=== PATIENT | female | born 1965 | race Hispanic/Latino ===

== ENCOUNTER 2017-07-17 22:56 | Inpatient (IN) | payer MEDICARE, MEDICAID ==
--- NOTE | 2017-07-17 23:17 | ED PDOC ---
Arrival/HPI - General Time Seen by Provider: 07/17/17 22:58 Historian: Patient - History of Present Illness Narrative History of Present Illness (Text): 07/17/17 23:13 Anay Velazco is a 52 year old female, whose past medical history includes dementia, cerebral palsy, and hypertension, who presents to the emergency department complaining of large amounts of coffee ground vomitus as per Jail papers. Patient has no other complaints at this time. Unable to obtain further history due to patient's underlying mute and dementia from Cerebral Palsy. Time/Duration: 4-6 hours Symptom Course: Intermittent Severity Level: Mild Activities at Onset: Light Context: Home Past Medical History - Provider Review Nursing Documentation Reviewed: Yes - Infectious Disease Hx of Infectious Diseases: None - Tetanus Immunization Tetanus Immunization: Unknown - Past Medical History Past Medical History: No Previous - Cardiac Hx Cardiac Disorders: No - Pulmonary Hx Respiratory Disorders: No - Neurological Hx Neurological Disorder: No - HEENT Hx HEENT Disorder: No - Renal Hx Renal Disorder: No - Endocrine/Metabolic Hx Diabetes Mellitus Type 1: Yes - Hematological/Oncological Hx Blood Transfusions: No Hx Blood Transfusion Reaction: No - Integumentary Hx Dermatological Disorder: No - Musculoskeletal/Rheumatological Hx Musculoskeletal Disorders: No - Gastrointestinal Hx Gastrointestinal Disorders: Yes Other/Comment: irritable bowel synd - Genitourinary/Gynecological Hx Incontinence: Yes - Psychiatric Hx Psychophysiologic Disorder: No Hx Substance Use: No - Past Surgical History Past Surgical History: Unable to Obtain - Surgical History Other/Comment: - Anesthesia Hx Anesthesia Reactions: No Hx Malignant Hyperthermia: No - Suicidal Assessment Feels Threatened In Home Enviroment: No Family/Social History - Physician Review Nursing Documentation Reviewed: Yes Family/Social History: No Known Family HX Smoking Status: Never Smoked Hx Alcohol Use: No Hx Substance Use: No Hx Substance Use Treatment: No Allergies/Home Meds Allergies/Adverse Reactions: Allergies No Known Allergies Allergy (Verified 06/12/13 22:38) Home Medications: Home Meds Medication Instructions Recorded Confirmed Enoxaparin Sodium [Lovenox] 40 mg SC DAILY 06/13/13 07/28/14 Polyethylene Glycol 3350 [Miralax] 17 gm PO DAILY 06/13/13 07/28/14 Sorbitol Solution [Sorbitol 1 ml] 15 ml PO DAILY 06/13/13 07/28/14 Acetaminophen [Tylenol] 650 mg PO PRN PRN 07/23/13 07/28/14 Albuterol/Ipratropium [Duoneb 3 3 ml IH Q6 PRN 07/23/13 07/28/14 MG/3 Ml-0.5 MG/3 Ml 3 Ml] Bisacodyl [Dulcolax] 10 mg RC PRN PRN 07/23/13 07/28/14 Metoprolol Tartrate 25 mg PO DAILY 07/23/13 07/28/14 Mvi Daily 1 tab PO DAILY 07/23/13 07/28/14 Nutritional Supplement [Ensure] 1 bar PO DAILY 07/23/13 07/28/14 Pantoprazole Sodium [Protonix] 40 mg PO DAILY 07/23/13 07/28/14 Vitamin A/D [Vitamin A&D] 1 appl TP PRN PRN 07/23/13 07/28/14 Review of Systems - Physician Review All systems were reviewed & negative as marked: Yes - Review of Systems Constitutional: absent: Fevers, Night Sweats Eyes: absent: Vision Changes ENT: absent: Hearing Changes Respiratory: absent: SOB, Cough Cardiovascular: absent: Chest Pain Gastrointestinal: Hematemesis Genitourinary Female: absent: Dysuria Musculoskeletal: absent: Arthralgias Skin: absent: Rash Neurological: absent: Headache, Dizziness Endocrine: absent: Diaphoresis Physical Exam Vital Signs Temp Pulse Resp Pulse Ox 07/17/17 23:00 100.2 F H 125 H 16 93 L Temperature: Febrile Pulse: Tachycardic Appearance: Positive for: Well-Appearing, Non-Toxic, Comfortable - Systems Exam Head: Present: Atraumatic, Normocephalic Pupils: Present: PERRL Extroacular Muscles: Present: EOMI Conjunctiva: Present: Normal Mouth: Present: Moist Mucous Membranes Neck: Present: Normal Range of Motion Respiratory/Chest: Present: Clear to Auscultation, Good Air Exchange. No: Respiratory Distress, Accessory Muscle Use Cardiovascular: Present: Regular Rate and Rhythm, Normal S1, S2. No: Murmurs Abdomen: Present: Normal Bowel Sounds. No: Tenderness, Distention, Peritoneal Signs Back: Present: Normal Inspection Upper Extremity: Present: Other (Contracted extremities due to cerebral palsy) Lower Extremity: Present: Other (Contracted extremities due to cerebral palsy) Neurological: Present: Other (Non-verbal and non-communicative which is baseline ) Skin: Present: Warm, Dry, Normal Color. No: Rashes Psychiatric: Present: Alert, Oriented x 3, Normal Insight, Normal Concentration Medical Decision Making ED Course and Treatment: 07/17/17 23:16 Impression: 52 year old female complaining of large amounts of coffee ground vomitus as per group home papers. Differential Diagnosis included but are not limited to: Plan: -- EKG -- Chest X-ray -- Type and Screen -- Labs -- Protonix, Zofran, and IV Fluids -- Reassess and disposition Progress Notes: 07/18/17 05:55 Code sepsis was called .Pt. remains alert,with normal vital signs/ hemodynamically stable. 07/18/17 06:00 Case was discussed with PMD .Accepted to her service.Requested / on consult. - Lab Interpretations Lab Results: 07/18/17 04:00 07/18/17 04:00 Lab Results 07/18/17 05:05: pO2 119 H, VBG pH 7.48 H, VBG pCO2 30.0 L, VBG HCO3 22.3, VBG Total CO2 23.2, VBG O2 Sat (Calc) 99.2 H, VBG Base Excess -0.3 L, VBG Potassium 5.0, Glucose 115 H, Lactate 2.2 H, FiO2 21.0, Sodium 141.0, Chloride 111.0 H, Venous Blood Potassium 5.0 07/18/17 04:00: Blood Type O POSITIVE, Antibody Screen Negative, BBK History Checked No verified bt 07/18/17 04:00: WBC 18.5 H D, RBC 4.90, Hgb 11.9 L, Hct 37.6, MCV 76.7 L, MCH 24.3 L, MCHC 31.6, RDW 16.3 H, Plt Count 361, MPV 10.5 07/18/17 04:00: Sodium 142, Potassium 4.0, Chloride 109 H, Carbon Dioxide 22, Anion Gap 15, BUN 10, Creatinine 0.6 L, Est GFR ( Amer) > 60, Est GFR ( Non-Af Amer) > 60, Random Glucose 115 H, Calcium 8.9, Total Bilirubin 1.0, AST 27, ALT 25, Alkaline Phosphatase 108, Total Protein 7.3, Albumin 3.8, Globulin 3.5, Albumin/Globulin Ratio 1.1, Lipase 19 L 07/18/17 04:00: PT 11.3, INR 1.05, APTT 29.0 I have reviewed the lab results: Yes - RAD Interpretation Radiology Orders: 07/17/17 23:17 CHEST PORTABLE [RAD] Stat - Medication Orders Current Medication Orders: Sodium Chloride (Sodium Chloride 0.9%) 1,000 mls @ 100 mls/hr IV .Q10H [facility] Last Admin: 07/17/17 23:30 Dose: 100 mls/hr eMAR Start Stop Document 07/17/17 23:30 JOL (Rec: 07/18/17 01:59 JOL [id number]) Intravenous Solution Start Date 07/17/17 Start Time 23:30 Discontinued Medications Cefepime HCl (Maxipime 2gm) 2 gm in 100 mls @ 100 mls/hr IVPB STAT STA PRN Reason: Protocol Stop: 07/18/17 05:58 Last Admin: 07/18/17 05:53 Dose: 100 mls/hr eMAR Start Stop Document 07/18/17 05:53 JOL (Rec: 07/18/17 05:53 JOL [id number]) Intravenous Solution Start Date 07/18/17 Start Time 05:53 End Date 07/18/17 End time 06:53 Total Infusion Time 60 Sodium Chloride 2,180 ml/ IV (SUPPLIES) 2,180 mls @ 4,354.5 mls/hr IV ONCE ONE PRN Reason: 60 ML/KG/HR Stop: 07/18/17 05:56 Ondansetron HCl (Zofran Inj) 4 mg IVP ONCE ONE Stop: 07/17/17 23:19 Last Admin: 07/17/17 23:30 Dose: 4 mg IVP Administration Document 07/17/17 23:30 JOL (Rec: 07/18/17 01:59 JOL [id number]) Charges for Administration # of IVP Administrations 1 Pantoprazole Sodium (Protonix Inj) 40 mg IVP ONCE STA Stop: 07/17/17 23:19 Last Admin: 07/17/17 23:30 Dose: 40 mg IVP Administration Document 07/17/17 23:30 JOL (Rec: 07/18/17 01:59 TRISH DUBOIS) Charges for Administration # of IVP Administrations 1 - Scribe Statement The provider has reviewed the documentation as recorded by the Kelsi Zee Provider Scribe Attestation: All medical record entries made by the Scribe were at my direction and personally dictated by me. I have reviewed the chart and agree that the record accurately reflects my personal performance of the history, physical exam, medical decision making, and the department course for this patient. I have also personally directed, reviewed, and agree with the discharge instructions and disposition. Disposition/Present on Arrival - Present on Arrival Any Indicators Present on Arrival: No History of DVT/PE: No History of Uncontrolled Diabetes: No Urinary Catheter: No History of Decub. Ulcer: No History Surgical Site Infection Following: None - Disposition Have Diagnosis and Disposition been Completed?: Yes Diagnosis: SIRS (systemic inflammatory response syndrome), Sepsis, GI bleed Disposition: HOSPITALIZED Disposition Time: 06:11 Patient Plan: Admission Patient Problems: Current Active Problems Problem Status Onset GI bleed Acute SIRS (systemic inflammatory response syndrome) Acute Sepsis Acute Condition: STABLE Discharge Instructions (ExitCare): Sepsis (ED)
[2017-07-17] MEDS: Sodium Chloride 0.9% 1,000 ML IV SCH (23:30)
[2017-07-18 04:33] LABS: HEMATOCRIT 37.6 % (36.0-48.0); MEAN CELL VOLUME 76.7 fl (80.0-105.0); MEAN CORPUSCULAR HEMOGLOBIN 24.3 pg (25.0-35.0); MEAN CORPUSCULAR HGB CONC 31.6 g/dl (31.0-37.0); MEAN PLATELET VOLUME 10.5 fl (7.0-11.0); RED CELL DISTRIBUTION WIDTH 16.3 % (11.5-14.5); WHITE BLOOD COUNT 18.5 10^3/ul (4.5-11.0)
[2017-07-18 04:34] LABS: ALB/GLOB RATIO 1.1 (1.1-1.8); ALKALINE PHOSPHATASE 108 U/L (38-126); ALT/SGPT 25 U/L (7-56); AST/SGOT 27 U/L (14-36); BLOOD UREA NITROGEN 10 mg/dL (7-21); CALCIUM 8.9 mg/dL (8.4-10.5); CARBON DIOXIDE 22 mmol/L (21-33); CHLORIDE 109 mmol/L (98-107); GFR AFRICAN-AMERICAN > 60; GLUCOSE,RANDOM 115 mg/dL (70-110); LIPASE 19 U/L (23-300); SODIUM 142 mmol/L (132-148); TOTAL PROTEIN 7.3 g/dL (5.8-8.3)
[2017-07-18 04:42] LABS: INR 1.05 (0.93-1.08)
[2017-07-18] MEDS ORDERED: Cefepime IV 2 gm in NS 2 GM/100 ML BAG IVPB STA (04:59)
[2017-07-18 05:20] LABS: VENOUS BLOOD GAS BASE EXCESS -0.3 mmol/L (0.0-2.0); VENOUS BLOOD PH 7.48 (7.32-7.43)
--- NOTE | 2017-07-18 06:07 | PCM.SEPTIC ---
Sepsis Progress Note - Reassessment Type Date of Evaluation: 07/18/17 Time of Evaluation: 06:06 Reassessment Type: Non-invasive reassessment - Non Invasive Reassessment Were the most recent vital sign reviewed: Yes Vital Sign (Latest): Temp Pulse Resp BP Pulse Ox 100.2 F H 125 H 16 93 L 07/17/17 23:00 07/17/17 23:00 07/17/17 23:00 07/17/17 23:00
[2017-07-18 06:32] LABS: URINE BILIRUBIN NEGATIVE (NEGATIVE); URINE BLOOD MODERATE (NEGATIVE); URINE GLUCOSE (UA) NEGATIVE (NEGATIVE); URINE KETONE NEGATIVE (NEGATIVE); URINE LEUKOCYTE ESTERASE LARGE Leu/uL (NEGATIVE); URINE PROTEIN 30 mg/dL (<30 mg/dL)
[2017-07-18 06:39] LABS: URINE APPEARANCE CLOUDY (CLEAR); URINE COLOR YELLOW (YELLOW)
[2017-07-18 06:43] LABS: URINE BACTERIA MOD (NEG); URINE WBC TNTC /hpf (0-6)
--- NOTE | 2017-07-18 06:57 | CP.PCM.PN ---
Subjective - Date & Time of Evaluation Date of Evaluation: 07/18/17 Time of Evaluation: 06:57 - Subjective Subjective: Blood was drawn from right arm for venous ABG. Dx:Poor venous access. Objective - Vital Signs/Intake and Output Vital Signs (last 24 hours): Temp Pulse Resp BP Pulse Ox 100.2 F H 125 H 16 93 L 07/17/17 23:00 07/17/17 23:00 07/17/17 23:00 07/17/17 23:00 - Medications Medications: Current Medications Sodium Chloride (Sodium Chloride 0.9%) 1,000 mls @ 100 mls/hr IV .Q10H [facility] Last Admin: 07/17/17 23:30 Dose: 100 mls/hr - Labs Labs: PT 11.3 Seconds (9.9-11.8) 07/18/17 04:00 INR 1.05 (0.93-1.08) 07/18/17 04:00 APTT 29.0 Seconds (23.7-30.8) 07/18/17 04:00
[2017-07-18 08:58] LABS: VENOUS BLOOD GAS BASE EXCESS -1.4 mmol/L (0.0-2.0); VENOUS BLOOD PH 7.49 (7.32-7.43)
--- NOTE | 2017-07-18 09:00 | RAD ---
HISTORY: vomiting COMPARISON: 07/28/2014. FINDINGS: LUNGS: The lungs are clear. PLEURA: No significant pleural effusion identified, no pneumothorax apparent. CARDIOVASCULAR: Normal. OSSEOUS STRUCTURES: There is an S-shaped scoliosis in the thoracolumbar spine. VISUALIZED UPPER ABDOMEN: Normal. OTHER FINDINGS: None. IMPRESSION: No active pulmonary disease.
[2017-07-18] MEDS ORDERED: Albuterol-Ipratrop 3 mg / 0.5 (3 ml) UD IH PRN (10:11)
[2017-07-18] MEDS: Sodium Chloride 0.9% 1,000 ML IV SCH (10:20)
--- NOTE | 2017-07-18 10:33 | CT ---
PROCEDURE: CT Abdomen and Pelvis without intravenous contrast HISTORY: obstruction COMPARISON: None. TECHNIQUE: Without contrast.. Contrast Dose: Radiation dose: Total exam DLP = 869 mGy-cm. This CT exam was performed using one or more of the following dose reduction techniques: Automated exposure control, adjustment of the mA and/or kV according to patient size, and/or use of iterative reconstruction technique. FINDINGS: LOWER THORAX: Unremarkable. LIVER: Unremarkable. No gross lesion or ductal dilatation. GALLBLADDER AND BILE DUCTS: Unremarkable. PANCREAS: Unremarkable. No gross lesion or ductal dilatation. SPLEEN: Unremarkable. ADRENALS: Unremarkable. No mass. KIDNEYS AND URETERS: There is a large staghorn calculus in the right renal pelvis measuring 20 x 26 mm. Smaller more peripheral stones are seen in the right kidney. The left kidney is unremarkable. VASCULATURE: Unremarkable. No aortic aneurysm. BOWEL: Unremarkable. No obstruction. No gross mural thickening. APPENDIX: Unremarkable. Normal appendix. PERITONEUM: Unremarkable. No free fluid. No free air. LYMPH NODES: Unremarkable. No enlarged lymph nodes. BLADDER: Unremarkable. REPRODUCTIVE: Unremarkable. BONES: There is severe scoliosis convex to the left with a Sunshine angle of 50 degrees. Chronic hip dislocations are seen OTHER FINDINGS: None. IMPRESSION: Large staghorn calculi in the right kidney. No acute intra-abdominal findings. No evidence of obstruction
--- NOTE | 2017-07-18 11:27 | CP.PCM.CON ---
<Anay John - Last Filed: 07/18/17 11:25> History of Present Illness - History of Present Illness History of Present Illness: Seen and examined at bedside in ER this am, chart reviewed. ' Request for GI consult is for hematemesis. HPI: This is a 52 year old female w/ PMH of Cerebral Palsy, hypertension, and dementia came from [place] with complaints of large amounts of coffee ground vomitus. Currently her brother is at the bedside and his who are her POA, the patient is nonverbal and unable to give history. History is obtained from Family, chart,, and medical staff. The patient is in bleeding in the pas The patient is report pure thickened liquids. The patient has never had endoscopy or colonoscopy. Past medical history: Cerebral palsy, hypertension Surgical history: Denies Family history: Noncontributory Allergies: NKDA Medications: MAR reviewed Social history: No history of smoking, EtOH , or substance abuse. From [facility], POA: Her brother Lucas Velazco: Number to be reached [phone] ROS: Systems reviewed with positive findings, see hpi Past Patient History - Infectious Disease Hx of Infectious Diseases: None - Tetanus Immunizations Tetanus Immunization: Unknown - Past Social History Smoking Status: Never Smoked - CARDIAC Hx Cardiac Disorders: No - PULMONARY Hx Respiratory Disorders: No - NEUROLOGICAL Hx Neurological Disorder: No - HEENT Hx HEENT Problems: No - RENAL Hx Chronic Kidney Disease: No - ENDOCRINE/METABOLIC Hx Diabetes Mellitus Type 1: Yes - HEMATOLOGICAL/ONCOLOGICAL Hx Blood Transfusions: No Hx Blood Transfusion Reaction: No - INTEGUMENTARY Hx Dermatological Problems: No - MUSCULOSKELETAL/RHEUMATOLOGICAL Hx Musculoskeletal Disorders: No - GASTROINTESTINAL Hx Gastrointestinal Disorders: Yes Other/Comment: irritable bowel synd - GENITOURINARY/GYNECOLOGICAL Hx Incontinence: Yes - PSYCHIATRIC Hx Psychophysiologic Disorder: No Hx Substance Use: No - SURGICAL HISTORY Other/Comment: - ANESTHESIA Hx Anesthesia Reactions: No Hx Malignant Hyperthermia: No Meds Allergies/Adverse Reactions: Allergies Allergy/AdvReac Type Severity Reaction Status Date / Time No Known Allergies Allergy Verified 06/12/13 22:38 - Medications Medications: Current Medications Sodium Chloride (Sodium Chloride 0.9%) 1,000 mls @ 100 mls/hr IV .Q10H [facility] Last Admin: 07/17/17 23:30 Dose: 100 mls/hr Cefepime HCl (Maxipime 2gm) 2 gm in 100 mls @ 100 mls/hr IVPB Q8 [facility]A PRN Reason: Protocol Stop: 07/23/17 14:01 Physical Exam - Constitutional Appears: No Acute Distress - Head Exam Head Exam: NORMAL INSPECTION - Eye Exam Eye Exam: Normal appearance. absent: Scleral icterus - ENT Exam ENT Exam: Mucous Membranes Moist Additional comments: oral cavity with dried dark saliva - Neck Exam Neck exam: Positive for: Normal Inspection - Respiratory Exam Respiratory Exam: Decreased Breath Sounds, NORMAL BREATHING PATTERN. absent: Rales, Wheezes, Respiratory Distress - Cardiovascular Exam Cardiovascular Exam: +S1, +S2 - GI/Abdominal Exam GI & Abdominal Exam: Normal Bowel Sounds, Soft. absent: Distended, Guarding, Rebound, Tenderness - Extremities Exam Extremities exam: Positive for: pedal pulses present. Negative for: calf tenderness, pedal edema Additional comments: legs dry, mild edema - Neurological Exam Additional comments: awake and alert, nonverbal - Skin Skin Exam: Dry, Warm Results - Vital Signs Recent Vital Signs: Last Vital Signs Temp 99.1 F 07/18/17 08:00 Pulse 100 H 07/18/17 08:00 Resp 18 07/18/17 08:00 BP 118/89 07/18/17 08:00 Pulse Ox 98 07/18/17 08:00 - Labs Result Diagrams: 07/18/17 04:00 07/18/17 04:00 Labs: Laboratory Results - last 24 hr 07/18/17 07/18/17 06:15 08:40 pO2 133 H VBG pH 7.49 H VBG pCO2 27.0 L VBG HCO3 20.6 L VBG Total CO2 21.4 L VBG O2 Sat (Calc) 98.9 H VBG Base Excess -1.4 L VBG Potassium 4.2 Sodium 143.0 Chloride 116.0 H Glucose 103 Lactate 1.2 FiO2 21.0 Venous Blood Potassium 4.2 Urine Color Yellow Urine Appearance Cloudy Urine pH 8.0 Ur Specific [place] 1.015 Urine Protein 30 H Urine Glucose (UA) Negative Urine Ketones Negative Urine Blood Moderate H Urine Nitrate Positive H Urine Bilirubin Negative Urine Urobilinogen 1.0 H Ur Leukocyte Esterase Large H Urine RBC 2 - 5 Urine WBC Tntc Ur Epithelial Cells 1 - 3 Urine Bacteria Mod Assessment & Plan - Assessment and Plan (Free Text) Assessment: Assessment: Hematemesis Leukocytosis UTI Cerebral palsy Hypertension Plan: Request for CT scan A&P w/no IV or oral contrast r/o obstruction or pathology continue Protonix 40 IV daily NPO , continue IVF monitor H/H and for overty GI bleeding urine and blood cultures sent ID evaluation may benefit from EGD, will FU ct scan report spoke brother Myles and at bedside who is POA ([phone]) regarding plan. Thank you for this consult and for allowing us to participate in your patient care. Seen and discussed w/ Dr. Rodriguez. <Kiya Rodriguez V - Last Filed: 07/18/17 18:28> Meds - Medications Medications: Current Medications Albuterol/Ipratropium (Duoneb 3 Mg/0.5 Mg (3 Ml) Ud) 3 ml IH Q6 PRN PRN Reason: Cough and congestion Sodium Chloride (Sodium Chloride 0.9%) 1,000 mls @ 100 mls/hr IV .Q10H [facility] Last Admin: 07/18/17 10:20 Dose: 100 mls/hr Cefepime HCl (Maxipime 2gm) 2 gm in 100 mls @ 100 mls/hr IVPB Q8 [facility]AYA PRN Reason: Protocol Stop: 07/23/17 14:01 Last Admin: 07/18/17 15:11 Dose: 100 mls/hr Metoprolol Tartrate (Lopressor) 25 mg PO BID [facility] Last Admin: 07/18/17 17:42 Dose: Not Given Pantoprazole Sodium (Protonix Inj) 40 mg IVP DAILY [facility] Results - Vital Signs Recent Vital Signs: Last Vital Signs Temp 97.3 F L 07/18/17 14:00 Pulse 104 H 07/18/17 14:00 Resp 20 07/18/17 14:00 BP 134/74 07/18/17 17:42 Pulse Ox 97 07/18/17 14:00 - Labs Result Diagrams: 07/18/17 04:00 07/18/17 04:00 Labs: Laboratory Results - last 24 hr 07/18/17 07/18/17 06:15 08:40 pO2 133 H VBG pH 7.49 H VBG pCO2 27.0 L VBG HCO3 20.6 L VBG Total CO2 21.4 L VBG O2 Sat (Calc) 98.9 H VBG Base Excess -1.4 L VBG Potassium 4.2 Sodium 143.0 Chloride 116.0 H Glucose 103 Lactate 1.2 FiO2 21.0 Venous Blood Potassium 4.2 Urine Color Yellow Urine Appearance Cloudy Urine pH 8.0 Ur Specific [place] 1.015 Urine Protein 30 H Urine Glucose (UA) Negative Urine Ketones Negative Urine Blood Moderate H Urine Nitrate Positive H Urine Bilirubin Negative Urine Urobilinogen 1.0 H Ur Leukocyte Esterase Large H Urine RBC 2 - 5 Urine WBC Tntc Ur Epithelial Cells 1 - 3 Urine Bacteria Mod Attending/Attestation - Attestation I have personally seen and examined this patient.: Yes I have fully participated in the care of the patient.: Yes I have reviewed all pertinent clinical information: Yes Notes (Text): This is an addendum to GI progress report dictated by Anay John APN.The patient was seen and examined earlier. Medical records, lab studies, imagings were reviewed. Last 24 hours events reviewed. Agreed with the above treatment plan as outlined in Anay John APN's notes the with the addition of the following this 50-year-old [facility] resident was transferred to 4 episodes of coffee- ground vomitus patient was found to have positive urease suggests a urinary tract infection. on examination abdomen soft no tenderness. A CT scan revealed renal calculus large. Patient is presently on IV antibiotics we will continue that. we start the patient the liquid diet and close follow-up of the hemoglobin and hematocrit continue PPI would defer EGD for now 07/18/17 18:27
[2017-07-18 13:49] VITALS: BMI 29.2
[2017-07-18] MEDS ORDERED: Pneumococcal 23-Valent Vaccine IM ONE (13:50)
--- NOTE | 2017-07-18 15:00 | CARD ---
APPROVED REPORT EKG Measurement Heart [id number] MA [id number] [id number] <Conclusion> Sinus tachycardia RSR' or QR pattern in V1 suggests right ventricular conduction delay Q in Lead 3 and Small Q in AVF.
[2017-07-18] MEDS: Cefepime IV 2 gm in NS 2 GM/100 ML BAG IVPB SCH ×2 (15:11→21:54)
--- NOTE | 2017-07-18 15:53 | CP.PCM.CON ---
History of Present Illness - History of Present Illness History of Present Illness: 52 year old female with PMH of dementia, cerebral palsy, HTN, DM, irritable bowel syndrome was brought in to [facility] after she had an episode of coffee ground emesis at the correction. There was no note of diarrhea, no convulsions, no loss of consciousness, no fall. In the ED, she was noted to have elevated lactate blood levels and leukocytosis. Infectious Diseases consult is requested to further evaluate and manage. Further review of systems is unobtainable because of the patient's cerebral palsy. Review of Systems - Review of Systems All systems: reviewed and no additional remarkable complaints except (as per HPI ) Past Patient History - Infectious Disease Hx of Infectious Diseases: None - Tetanus Immunizations Tetanus Immunization: Unknown - Past Social History Smoking Status: Never Smoked - CARDIAC Hx Cardiac Disorders: No - PULMONARY Hx Respiratory Disorders: No - NEUROLOGICAL Hx Neurological Disorder: No - HEENT Hx HEENT Problems: No - RENAL Hx Chronic Kidney Disease: No - ENDOCRINE/METABOLIC Hx Diabetes Mellitus Type 1: Yes - HEMATOLOGICAL/ONCOLOGICAL Hx Blood Transfusions: No Hx Blood Transfusion Reaction: No - INTEGUMENTARY Hx Dermatological Problems: No - MUSCULOSKELETAL/RHEUMATOLOGICAL Hx Musculoskeletal Disorders: No - GASTROINTESTINAL Hx Gastrointestinal Disorders: Yes Other/Comment: irritable bowel synd - GENITOURINARY/GYNECOLOGICAL Hx Incontinence: Yes - PSYCHIATRIC Hx Psychophysiologic Disorder: No Hx Substance Use: No - SURGICAL HISTORY Other/Comment: - ANESTHESIA Hx Anesthesia Reactions: No Hx Malignant Hyperthermia: No Meds Allergies/Adverse Reactions: Allergies Allergy/AdvReac Type Severity Reaction Status Date / Time No Known Allergies Allergy Verified 06/12/13 22:38 - Medications Medications: Current Medications Sodium Chloride (Sodium Chloride 0.9%) 1,000 mls @ 100 mls/hr IV .Q10H [facility] Last Admin: 07/17/17 23:30 Dose: 100 mls/hr Physical Exam - Constitutional Appears: Non-toxic, No Acute Distress - Head Exam Head Exam: NORMAL INSPECTION - Neck Exam Neck exam: Negative for: Meningismus - Respiratory Exam Respiratory Exam: Decreased Breath Sounds - Cardiovascular Exam Cardiovascular Exam: +S1, +S2 - GI/Abdominal Exam GI & Abdominal Exam: Soft. absent: Tenderness Results - Vital Signs Recent Vital Signs: Last Vital Signs Temp 100.2 F H 07/17/17 23:00 Pulse 125 H 07/17/17 23:00 Resp 16 07/17/17 23:00 BP Pulse Ox 93 L 07/17/17 23:00 - Labs Result Diagrams: 07/18/17 04:00 07/18/17 04:00 Labs: Laboratory Results - last 24 hr 07/18/17 06:15 Urine Color Yellow Urine Appearance Cloudy Urine pH 8.0 Ur Specific [place] 1.015 Urine Protein 30 H Urine Glucose (UA) Negative Urine Ketones Negative Urine Blood Moderate H Urine Nitrate Positive H Urine Bilirubin Negative Urine Urobilinogen 1.0 H Ur Leukocyte Esterase Large H Urine RBC 2 - 5 Urine WBC Tntc Ur Epithelial Cells 1 - 3 Urine Bacteria Mod Assessment & Plan - Assessment and Plan (Free Text) Plan: Assessment Systemic Inflammatory Response Syndrome, probably related to Upper GI bleeding, etiology to be determined, R/O sepsis due to UTI with finding of right kidney staghorn calculus dementia cerebral palsy HTN DM irritable bowel syndrome Plan Started patient on Cefepime pending blood, urine cx; reviewed CT A/P follow up endoscopy plans of GI would suggest Urology evaluation for the right kidney staghorn calculus will monitor clinically
[2017-07-18] MEDS ORDERED: Non Formulary Medication (Metoprolol Tartrate [Metoprolol Tartrate] 25 MG) PO SCH (18:00)
[2017-07-19] MEDS: Cefepime IV 2 gm in NS 2 GM/100 ML BAG IVPB SCH ×3 (05:53→21:24)
[2017-07-19 07:09] LABS: ALB/GLOB RATIO 1.1 (1.1-1.8); ALKALINE PHOSPHATASE 105 U/L (38-126); ALT/SGPT 29 U/L (7-56); AST/SGOT 30 U/L (14-36); BILIRUBIN,TOTAL 1.1 mg/dL (0.2-1.3); BLOOD UREA NITROGEN 5 mg/dL (7-21); CALCIUM 8.5 mg/dL (8.4-10.5); CARBON DIOXIDE 17 mmol/L (21-33); CHLORIDE 117 mmol/L (98-107); CHOLESTEROL 164 mg/dL (130-200); GFR AFRICAN-AMERICAN > 60; GLUCOSE,RANDOM 91 mg/dL (70-110); POTASSIUM 4.2 mmol/L (3.6-5.0); SODIUM 149 mmol/L (132-148); TOTAL PROTEIN 6.9 g/dL (5.8-8.3)
[2017-07-19 07:48] LABS: IRON 41 ug/dL (45-180)
[2017-07-19 08:41] LABS: BASO # 0.06 K/mm3 (0.0-2.0); BASO % 0.5 % (0.0-3.0); EOS # 0.2 (0.0-0.7); EOS % 2.2 % (1.5-5.0); GRAN # 8.25 (1.4-6.5); GRAN % 74.4 % (50.0-68.0); HEMATOCRIT 36.4 % (36.0-48.0); LYMPH # 1.9 (1.2-3.4); MEAN CELL VOLUME 77.8 fl (80.0-105.0); MEAN CORPUSCULAR HEMOGLOBIN 23.9 pg (25.0-35.0); MEAN CORPUSCULAR HGB CONC 30.8 g/dl (31.0-37.0); MEAN PLATELET VOLUME 9.9 fl (7.0-11.0); MONO # 0.7 (0.1-0.6); MONO % 5.9 % (1.0-6.0); RED CELL DISTRIBUTION WIDTH 16.2 % (11.5-14.5); WHITE BLOOD COUNT 11.1 10^3/ul (4.5-11.0)
--- NOTE | 2017-07-19 09:57 | HP ---
DATE: CHIEF COMPLAINT: Vomiting with blood. HISTORY OF PRESENT ILLNESS: Ms. Anay Velazco is a 52-year-old female, resident of [facility] with past medical history of dementia, cerebral palsy, hypertension, is brought to the emergency room department complaining of large amount of coffee-ground vomitus as per skilled nursing staff. Actually, they called me mid of the night and then I told them to transfer patient to [facility] Emergency room. Patient is nonverbal, cannot give any history, then I saw the patient's brother and [id number] were sitting on the bedside. They have many questions. We answered that. PAST MEDICAL HISTORY: Dementia, cerebral palsy, hypertension, osteoporosis, diabetes mellitus type 1, urinary incontinence, section. FAMILY HISTORY: Father and mother noncontributory. HABITS: Never smoked. No drugs. No ethanol. ALLERGIES: PATIENT IS NOT ALLERGIC WITH ANY MEDICATIONS. HOME MEDICATIONS: Lovenox, MiraLax, sorbitol, Tylenol, Dulcolax, metoprolol, multivitamins, ensure, Protonix, vitamin A and D. REVIEW OF SYSTEMS: Patient is examined on the bedside, looking comfortable. No more vomiting. No vision changes, no hearing changes. No shortness of breath. No coughing. History of hematemesis. Patient is nonverbal, cannot give review of systems by looking at this new rash. PHYSICAL EXAMINATION VITAL SIGNS: Temperature 99.4, T-max 100.2, pulse 101, blood pressure 135/73, respiratory rate 19. HEENT: Head is normocephalic and atraumatic. Eyes: PERRLA. Extraocular muscles are intact. Conjunctivae are clear. Nose is patent. Mucous membranes are moist. NECK: Supple. No carotid bruits, JVD, or thyromegaly. CHEST: Bilaterally symmetrical. HEART: S1 and S2 positive. LUNGS: Clear to auscultation. ABDOMEN: Soft. Bowel sounds positive. No organomegaly. EXTREMITIES: No edema. No cyanosis. NEUROLOGICAL: The patient is awake, alert. Moving all 4 extremities. No focal deficit. LABORATORY DATA: White blood cells 13.5, hemoglobin 11.9, hematocrit 37.6, platelets 361. Sodium 142, potassium 4.0, BUN 10, creatinine 0.6, glucose 115. ASSESSMENT AND PLAN: Ms. Anay Velazco is a 52-year-old lady with leucocytosis, anemia, hyperchloremia, hyperglycemia, proteuria, hematuria, urinary tract infection. Seen by Dr. Nic Dawkins, Infectious Disease. History of cerebral palsy, hypertension, came with coffee-ground vomiting. Seen by Dr. Rodriguez. Discussion done with him. Hematemesis. Gastrointestinal requested CAT scan to rule out obstruction or pathology. Started on Protonix IV and started on NPO, but later on after discussion with Dr. Rodriguez liquid food started. According to Dr. Rodriguez, may the patient will get benefit from esophagogastroduodenoscopy. Spoke to brother , and his at the bedside. They are power of real estate associate attorney. CT revealed renal calculus, large. Dr. Rodriguez started liquid diet and close followup of the hemoglobin and hematocrit. Continue PPI. Seen by Dr. Nic Dawkins, Infectious Disease, rule out systemic inflammatory response syndrome probably related to upper gastrointestinal bleeding. May be findings are due to right kidney staghorn calculus. Starting the patient on cefepime depending on the blood culture, urine culture. We will call consult with Dr. Casarez, Urologist, ask from the family if they want Dr. Casarez consult. CAT scan reviewed by me. Large staghorn calculi in the right kidney. No acute intraabdominal findings. No evidence of obstruction. Seen by Dr. Belkis Alston. Sepsis code was called. Discussion done with the brother and [id number]. Continue present treatment. Repeat labs. We will followup. Bety Nelson MD [id number]
--- NOTE | 2017-07-19 12:47 | CP.PCM.PN ---
<Anay John - Last Filed: 07/19/17 12:46> Subjective - Date & Time of Evaluation Date of Evaluation: 07/19/17 Time of Evaluation: 09:00 - Subjective Subjective: Seen and examined at the bedside this morning, no further reported hematemesis, the patient is awake and alert but nonverbal, no acute overnight events reported. Tolerated the clear liquids. No reports of BM. Objective - Vital Signs/Intake and Output Vital Signs (last 24 hours): Temp Pulse Resp BP Pulse Ox 98.6 F 95 H 20 140/80 98 07/19/17 08:10 07/19/17 08:10 07/19/17 08:10 07/19/17 08:10 07/19/17 08:10 Intake and Output: 07/19/17 07/19/17 06:59 18:59 Intake Total 241 Output Total 2500 Balance -2259 - Medications Medications: Current Medications Albuterol/Ipratropium (Duoneb 3 Mg/0.5 Mg (3 Ml) Ud) 3 ml IH Q6 PRN PRN Reason: Cough and congestion Sodium Chloride (Sodium Chloride 0.9%) 1,000 mls @ 100 mls/hr IV .Q10H [facility] Last Admin: 07/18/17 10:20 Dose: 100 mls/hr Cefepime HCl (Maxipime 2gm) 2 gm in 100 mls @ 100 mls/hr IVPB Q8 [facility] PRN Reason: Protocol Stop: 07/23/17 14:01 Last Admin: 07/19/17 05:53 Dose: 100 mls/hr Metoprolol Tartrate (Lopressor) 25 mg PO BID [facility] Last Admin: 07/19/17 09:24 Dose: Not Given Pantoprazole Sodium (Protonix Inj) 40 mg IVP DAILY [facility] Last Admin: 07/19/17 09:19 Dose: 40 mg - Labs Labs: 07/19/17 08:30 07/19/17 06:30 PT 11.3 Seconds (9.9-11.8) 07/18/17 04:00 INR 1.05 (0.93-1.08) 07/18/17 04:00 APTT 29.0 Seconds (23.7-30.8) 07/18/17 04:00 - Constitutional Appears: No Acute Distress - Eye Exam Eye Exam: Normal appearance. absent: Scleral icterus - ENT Exam ENT Exam: Mucous Membranes Moist - Neck Exam Neck Exam: Normal Inspection - Respiratory Exam Respiratory Exam: Decreased Breath Sounds, NORMAL BREATHING PATTERN. absent: Rales, Wheezes, Respiratory Distress - Cardiovascular Exam Cardiovascular Exam: +S1, +S2 - GI/Abdominal Exam GI & Abdominal Exam: Soft, Normal Bowel Sounds. absent: Guarding, Tenderness, Rebound - Extremities Exam Extremities Exam: Normal Capillary Refill. absent: Calf Tenderness, Pedal Edema - Neurological Exam Neurological Exam: Alert, Awake - Skin Skin Exam: Dry, Warm Assessment and Plan - Assessment and Plan (Free Text) Assessment: Assessment: s/p Hematemesis, H/H stable, no further N/V Urosepsis Staghorn Renal Calculi Cerebral palsy Hypertension Plan: continue Protonix 40 IV daily thick clear liquids, advance as tolerated on IVF monitor H/H and for overty GI bleeding as per ID urology eval Seen and discussed w/ Dr. Rodriguez <Kiya Rodriguez V - Last Filed: 07/19/17 23:46> Objective - Vital Signs/Intake and Output Vital Signs (last 24 hours): Temp Pulse Resp BP Pulse Ox 97 F L 75 18 119/53 L 98 07/19/17 16:00 07/19/17 18:00 07/19/17 16:00 07/19/17 16:00 07/19/17 16:00 Intake and Output: 07/19/17 07/20/17 18:59 06:59 Intake Total 0 240 Output Total 650 500 Balance -650 -260 - Medications Medications: Current Medications Albuterol/Ipratropium (Duoneb 3 Mg/0.5 Mg (3 Ml) Ud) 3 ml IH Q6 PRN PRN Reason: Cough and congestion Sodium Chloride (Sodium Chloride 0.9%) 1,000 mls @ 100 mls/hr IV .Q10H [facility] Last Admin: 07/19/17 21:19 Dose: 100 mls/hr Cefepime HCl (Maxipime 2gm) 2 gm in 100 mls @ 100 mls/hr IVPB Q8 [facility] PRN Reason: Protocol Stop: 07/23/17 14:01 Last Admin: 07/19/17 21:24 Dose: 100 mls/hr Vancomycin HCl (Vancomycin 1gm) 1 gm in 250 mls @ 167 mls/hr IVPB Q12H [facility] PRN Reason: Protocol Last Admin: 07/19/17 22:52 Dose: 167 mls/hr Iron Sucrose 100 mg/ Sodium (Chloride) 105 mls @ 210 mls/hr IVPB ONCE ONE Stop: 07/20/17 10:29 Metoprolol Tartrate (Lopressor) 25 mg PO BID [facility] Last Admin: 07/19/17 17:41 Dose: Not Given Pantoprazole Sodium (Protonix Inj) 40 mg IVP DAILY [facility] Last Admin: 07/19/17 09:19 Dose: 40 mg - Labs Labs: 07/19/17 08:30 07/19/17 06:30 PT 11.3 Seconds (9.9-11.8) 07/18/17 04:00 INR 1.05 (0.93-1.08) 07/18/17 04:00 APTT 29.0 Seconds (23.7-30.8) 07/18/17 04:00 Attending/Attestation - Attestation I have personally seen and examined this patient.: Yes I have fully participated in the care of the patient.: Yes I have reviewed all pertinent clinical information, including history, physical exam and plan: Yes Notes (Text): This is an addendum to GI progress report dictated by Anay John APN.The patient was seen and examined earlier. Medical records, lab studies, imagings were reviewed. Last 24 hours events reviewed. Agreed with the above treatment plan as outlined in Anay John APN's notes the with the addition of the following patient is tolerating diet Abdomen soft no tenderness Now blood culture positive awaiting for identification continue antibiotics as per ID Hemoglobin stable continue PPI 07/19/17 23:45
--- NOTE | 2017-07-19 13:07 | CON ---
DATE: 07/19/2017 GENITOURINARY CONSULTATION CHIEF COMPLAINT: Right renal staghorn calculus. HISTORY OF PRESENT ILLNESS: The patient is a 52-year-old woman. The history is obtained from the chart since she is a resident of [facility]. She has a history of dementia, cerebral palsy. She was admitted after having what appeared to be upper GI bleed. She is diabetic. She is not able to give a history and the history is obtained from the chart as mentioned. FAMILY HISTORY: It is not contributory. SOCIAL HISTORY: She does not smoke or drink. ALLERGIES: SHE HAS NO ALLERGIES. MEDICINES: She takes at home include Lovenox, sorbitol, Toprol and Protonix. REVIEW OF SYMPTOMS: She appears to be comfortable. No obvious respiratory distress, cardiac distress. She is breathing easily. She seems calm. PHYSICAL EXAMINATION: VITAL SIGNS: Shows her to be afebrile, pulse 95, blood pressure 140/80, respirations 20. HEENT: Sclerae clear. The conjunctivae are pink. ABDOMEN: No apparent CVA pain. No hepatosplenomegaly, rebound or guarding. BACK: She has significant curvature of her spine. She is lying supine. SKIN: No peripheral edema. DIAGNOSTIC STUDIES: A CAT scan was done which reported a right renal staghorn. I looked at the films. There was good parenchyma, this has been there in my opinion for years. The left kidney is normal, there does not appear to be any significant hydro. Her urine culture was no growth, as were her blood cultures. Her lab work showed a white count initially of 18,000, now 11,000. She is on cefepime. Her creatinine is 0.5. She has an indwelling catheter with an excellent output of 2500 mL. IMPRESSION: A right staghorn calculus that I would not treat. The patient has a negative urine culture; if it turns positive, I might speak to get the input from infectious disease as to whether any type of suppressive therapy either with Hiprex, vitamin C or low dose of any antibiotic, but if this is the first episode and there is no evidence of urosepsis, I absolutely would not treat this, the treatment would be extensive and I think given her overall medical condition it is not warranted. Kurt Casarez MD [facility] # [id number]
--- NOTE | 2017-07-19 13:37 | CON ---
DATE: HISTORY OF PRESENT ILLNESS: The patient is a 52-year-old female with a history of cerebral palsy and developmental disability, who is a resident of [facility], transferred to the emergency department of [facility] for coffee-ground emesis. The patient has been seen in consultation by Dr. Michael XIONG. The patient was also noted to have an elevated white blood cell count and low-grade fever and was seen in consultation by infectious disease. The patient is in no acute distress at present. There is no shortness of breath, no cough. Chest x-ray showed no active disease. Blood and urine cultures were negative. PAST MEDICAL HISTORY: The patient's past medical history includes cerebral palsy with developmental disability, hypertension, type 2 diabetes mellitus. The patient is essentially bed and wheelchair bound. REVIEW OF SYSTEMS: Unobtainable. MEDICATIONS: The patient's current medications include Lopressor 25 mg twice daily, DuoNeb 3 mL inhale q. 6 hours, cefepime 2 g IV q. 8 hours, Protonix 40 mg daily, and IV saline. ALLERGIES: THE PATIENT HAS NO KNOWN DRUG ALLERGIES. SOCIAL HISTORY: The patient has no history of tobacco, alcohol, or drug use. FAMILY HISTORY: Noncontributory. PHYSICAL EXAMINATION GENERAL: The patient is a well-nourished female, in no acute distress. VITAL SIGNS: Blood pressure 140/80, temperature 98.6, pulse 95, and respiratory rate 20. HEENT: Head is normocephalic and atraumatic. Pupils are equal, round, and reactive to light. Extraocular movements are intact. NECK: Supple with no thyromegaly, no carotid bruit, and no adenopathy. LUNGS: Clear. HEART: Regular rate and rhythm. ABDOMEN: Soft, nontender. Bowel sounds are normoactive. EXTREMITIES: Show contractures and muscle atrophy of all 4 extremities. NEUROLOGICAL: The patient is awake without focal, sensory, or motor deficits. She is essentially nonverbal and has global cognitive impairment. SKIN: Warm and dry. LABORATORY DATA: WBC is 11.1, hemoglobin 11.2, and hematocrit 36.4. Sodium 149, potassium 4.2, chloride 117, CO2 is 17, BUN 5, and creatinine 0.5. Urinalysis is positive for nitrites, moderate blood, large leukocyte esterase, and wbc is too numerous to count. IMPRESSION: 1. Possible urinary tract infection. Cultures may be negative if antibiotics were administered before culture was obtained. 2. Rule out upper gastrointestinal bleed. 3. Cerebral palsy with developmental disability. 4. Hypertension. 5. Type 2 diabetes mellitus. PLAN: Continue IV antibiotics, IV proton pump inhibitors, GI and infectious disease followup. We will position the patient every 2 hours to prevent pressure ulcers. Thank you for this consultation. We will follow. GURPREET Hopkins MD
--- NOTE | 2017-07-19 16:13 | PN ---
DATE: 07/19/2017 SUBJECTIVE: The patient is in bed, in no acute distress, was seen earlier today in 367, bed #2. PHYSICAL EXAMINATION: VITAL SIGNS: On exam, temperature is 98, blood pressure is 140/80, respiratory rate of 18. HEENT: Unremarkable. NECK: Supple. LUNGS: Have decreased breath sounds. HEART: Normal S1, S2. ABDOMEN: Soft, nontender. LABORATORY: Examination reveals a white count of 11,000, hemoglobin of 11 and platelets of 328. BUN of 5, creatinine of 0.5 and urinalysis is noted. Microbiology reveals the blood cultures are negative, urine cultures are negative. ASSESSMENT AND PLAN: A 52-year-old with dementia, cerebral palsy, hypertension, diabetes, irritable bowel syndrome with episode of coffee-ground emesis in the correction and with systemic inflammatory response syndrome probably related to upper gastrointestinal bleed, etiology to be determined and with negative blood, negative urine cultures and another urine culture is negative, currently on cefepime day #2 in a patient with cerebral palsy, dementia, hypertension, diabetes, irritable bowel syndrome. Anay John' progress note is reviewed and Dr. Casarez' consultation is reviewed. We will follow with you Georgi Goldstein MD
[2017-07-19] MEDS: Sodium Chloride 0.9% 1,000 ML IV SCH ×3 (17:42→21:19)
[2017-07-19] MEDS: Vancomycin 1gm in NS 250ml 1 GM/250 ML BAG IVPB SCH (22:52)
--- NOTE | 2017-07-19 23:47 | PN ---
DATE: SUBJECTIVE: The patient is a 52-year-old female. The patient was seen and examined on the bedside. Brother and [id number] were sitting on the bedside. The patient looks comfortable, smiling, had her food, but that was liquid, now we put her on a soft diet. No respiratory distress. No cardiac distress. No shortness of breath. No nausea, vomiting or diarrhea. No hematuria or hematochezia. No swelling of the leg. No chest pain. No palpitation. The patient is a poor historian. PHYSICAL EXAMINATION: VITAL SIGNS: The patient is afebrile. Pulse 95, blood pressure 140/80, respiratory rate 20. HEENT: Head normocephalic and atraumatic. Eyes; PERRLA. Extraocular muscles intact. Conjunctivae clear. Nose patent. Mucous membrane moist. NECK: Supple. No carotid bruits. No JVD or thyromegaly. CHEST: Bilaterally symmetrical. HEART: S1 and S2 positive. LUNGS: Clear to auscultation. ABDOMEN: Soft. Bowel sounds present. No organomegaly. EXTREMITIES: No edema. No cyanosis. NEUROLOGICAL: The patient is awake and alert. Moving all 4 extremities. No focal deficits. MEDICATIONS: DuoNeb, Lopressor, Maxipime, Protonix, IV saline, and vancomycin. LABORATORY DATA: White blood cells 11.1, hemoglobin 11.2, hematocrit 36.4, platelets 325. Sodium 149, potassium 4.2, BUN 5, creatinine 0.5, iron 41, saturation 14. ASSESSMENT AND PLAN: Ms. Anay Velazco is a 52-year-old female with leukocytosis, anemia, hypernatremia, hyperchloremia, iron deficiency getting iron infusion, proteinuria, hematuria, urinary tract infection, seen by Dr. Goldstein, Infectious Disease. The patient has advanced dementia, cerebral palsy, irritable bowel syndrome, came [place] [facility] em[facility] [place] [facility] and has systemic inflammatory response syndrome, rule out upper gastrointestinal bleeding. Negative blood culture. Negative urine culture. Another urine culture is negative. Continue cefepime day #2. Infectious Disease Dr. Casarez and Anay John' notes noted. Discussion done with Dr. Casarez and with Anay John. No further reported hematemesis, tolerated liquid food and advanced to heart healthy soft diet. Hemoglobin and hematocrit is stable. Staghorn renal calculi. Continue Protonix. Monitoring hemoglobin and hematocrit. CAT scan of the abdomen and pelvis done and reviewed by me. To call the office of the patient's overall medical condition. It is not suggestive to leave the right staghorn calculus and would not treat. Discussion was done with Dr. Casarez also. Discussion done with patient's family. Getting IV fluid. We will follow. Bety Nelson MD
[2017-07-20] MEDS: Cefepime IV 2 gm in NS 2 GM/100 ML BAG IVPB SCH ×3 (05:12→21:37)
[2017-07-20 07:17] LABS: ALKALINE PHOSPHATASE 101 U/L (38-126); ALT/SGPT 40 U/L (7-56); AST/SGOT 28 U/L (14-36); BILIRUBIN,TOTAL 0.8 mg/dL (0.2-1.3); BLOOD UREA NITROGEN 6 mg/dL (7-21); CALCIUM 8.6 mg/dL (8.4-10.5); CARBON DIOXIDE 20 mmol/L (21-33); CHLORIDE 114 mmol/L (98-107); GFR AFRICAN-AMERICAN > 60; GLUCOSE,RANDOM 105 mg/dL (70-110); POTASSIUM 3.4 mmol/L (3.6-5.0); SODIUM 145 mmol/L (132-148); TOTAL PROTEIN 7.1 g/dL (5.8-8.3)
[2017-07-20 09:02] LABS: HEMATOCRIT 34.1 % (36.0-48.0); MEAN CELL VOLUME 76.5 fl (80.0-105.0); MEAN CORPUSCULAR HGB CONC 31.4 g/dl (31.0-37.0); MEAN PLATELET VOLUME 10.2 fl (7.0-11.0); RED CELL DISTRIBUTION WIDTH 16.3 % (11.5-14.5); WHITE BLOOD COUNT 12.7 10^3/ul (4.5-11.0)
[2017-07-20] MEDS ORDERED: Potassium Chloride 20 mEq/15 ml LIQ UD PO STA (09:41)
--- NOTE | 2017-07-20 09:46 | CP.PCM.PN ---
Subjective - Date & Time of Evaluation Date of Evaluation: 07/20/17 Time of Evaluation: 09:25 - Subjective Subjective: resting comfortably, NAD Objective - Vital Signs/Intake and Output Vital Signs (last 24 hours): Temp Pulse Resp BP Pulse Ox 99.2 F 83 20 106/86 97 07/20/17 05:00 07/20/17 06:00 07/20/17 05:00 07/20/17 05:00 07/20/17 05:00 Intake and Output: 07/20/17 07/20/17 06:59 18:59 Intake Total 1235 Output Total 1400 Balance -165 - Medications Medications: Current Medications Acetaminophen (Tylenol 650 Mg Supp) 650 mg RC Q4H PRN PRN Reason: fever Acetaminophen (Tylenol 650 Mg Supp) 650 mg RC Q4H PRN PRN Reason: Pain, Mild (1-3) Last Admin: 07/20/17 01:35 Dose: 650 mg Albuterol/Ipratropium (Duoneb 3 Mg/0.5 Mg (3 Ml) Ud) 3 ml IH Q6 PRN PRN Reason: Cough and congestion Sodium Chloride (Sodium Chloride 0.9%) 1,000 mls @ 100 mls/hr IV .Q10H [facility] Last Admin: 07/19/17 21:19 Dose: 100 mls/hr Cefepime HCl (Maxipime 2gm) 2 gm in 100 mls @ 100 mls/hr IVPB Q8 [facility] PRN Reason: Protocol Stop: 07/23/17 14:01 Last Admin: 07/20/17 05:12 Dose: 100 mls/hr Vancomycin HCl (Vancomycin 1gm) 1 gm in 250 mls @ 167 mls/hr IVPB Q12H [facility] PRN Reason: Protocol Last Admin: 07/19/17 22:52 Dose: 167 mls/hr Iron Sucrose 100 mg/ Sodium (Chloride) 105 mls @ 210 mls/hr IVPB ONCE ONE Stop: 07/20/17 10:29 Last Admin: 07/20/17 09:00 Dose: 210 mls/hr Metoprolol Tartrate (Lopressor) 25 mg PO BID [facility] Last Admin: 07/20/17 09:03 Dose: Not Given Pantoprazole Sodium (Protonix Inj) 40 mg IVP DAILY [facility] Last Admin: 07/20/17 09:10 Dose: 40 mg Potassium Chloride (Potassium Chloride Oral Soln) 20 meq PO STAT [facility] Stop: 07/20/17 09:42 - Labs Labs: 07/20/17 08:56 07/20/17 06:51 PT 11.3 Seconds (9.9-11.8) 07/18/17 04:00 INR 1.05 (0.93-1.08) 07/18/17 04:00 APTT 29.0 Seconds (23.7-30.8) 07/18/17 04:00 - Respiratory Exam Respiratory Exam: Clear to Ausculation Bilateral, NORMAL BREATHING PATTERN - Cardiovascular Exam Cardiovascular Exam: REGULAR RHYTHM - GI/Abdominal Exam GI & Abdominal Exam: Soft, Normal Bowel Sounds - Neurological Exam Neurological Exam: Altered, Awake - Skin Skin Exam: Dry, Warm Assessment and Plan - Assessment and Plan (Free Text) Assessment: 1. UTI on maxepime, 2. r/o UGI Bleed, 3. Cerebral palsy with developmental disability, 4. HTN Plan: continue IV Abx, ID follow-up, GI eval, potassium ordered K+ 3.4 today
[2017-07-20] MEDS: Vancomycin 1gm in NS 250ml 1 GM/250 ML BAG IVPB SCH ×2 (10:25→21:40)
--- NOTE | 2017-07-20 12:42 | CP.PCM.PN ---
<Anay John - Last Filed: 07/20/17 12:41> Subjective - Date & Time of Evaluation Date of Evaluation: 07/20/17 Time of Evaluation: 09:50 - Subjective Subjective: Seen and examined at the bedside earlier this morning, the chart was reviewed. Patient is tolerating pured thick liquids, no reports of acute overnight events. Patient is awake and alert but nonverbal. No reports of overt GI bleed. No reports of recent BM. Objective - Vital Signs/Intake and Output Vital Signs (last 24 hours): Temp Pulse Resp BP Pulse Ox 99.2 F 104 H 20 106/86 97 07/20/17 05:00 07/20/17 10:00 07/20/17 05:00 07/20/17 05:00 07/20/17 05:00 Intake and Output: 07/20/17 07/20/17 06:59 18:59 Intake Total 1235 Output Total 1400 Balance -165 - Medications Medications: Current Medications Acetaminophen (Tylenol 650 Mg Supp) 650 mg RC Q4H PRN PRN Reason: fever Acetaminophen (Tylenol 650 Mg Supp) 650 mg RC Q4H PRN PRN Reason: Pain, Mild (1-3) Last Admin: 07/20/17 01:35 Dose: 650 mg Albuterol/Ipratropium (Duoneb 3 Mg/0.5 Mg (3 Ml) Ud) 3 ml IH Q6 PRN PRN Reason: Cough and congestion Sodium Chloride (Sodium Chloride 0.9%) 1,000 mls @ 100 mls/hr IV .Q10H [facility] Last Admin: 07/19/17 21:19 Dose: 100 mls/hr Cefepime HCl (Maxipime 2gm) 2 gm in 100 mls @ 100 mls/hr IVPB Q8 [facility] PRN Reason: Protocol Stop: 07/23/17 14:01 Last Admin: 07/20/17 05:12 Dose: 100 mls/hr Vancomycin HCl (Vancomycin 1gm) 1 gm in 250 mls @ 167 mls/hr IVPB Q12H [facility] PRN Reason: Protocol Last Admin: 07/20/17 10:25 Dose: 167 mls/hr Metoprolol Tartrate (Lopressor) 25 mg PO BID [facility] Last Admin: 07/20/17 09:03 Dose: Not Given Pantoprazole Sodium (Protonix Inj) 40 mg IVP DAILY [facility] Last Admin: 07/20/17 09:10 Dose: 40 mg - Labs Labs: 07/20/17 08:56 07/20/17 06:51 PT 11.3 Seconds (9.9-11.8) 07/18/17 04:00 INR 1.05 (0.93-1.08) 07/18/17 04:00 APTT 29.0 Seconds (23.7-30.8) 07/18/17 04:00 - Constitutional Appears: No Acute Distress - Eye Exam Eye Exam: Normal appearance. absent: Scleral icterus - ENT Exam ENT Exam: Mucous Membranes Moist - Neck Exam Neck Exam: Normal Inspection - Respiratory Exam Respiratory Exam: NORMAL BREATHING PATTERN. absent: Respiratory Distress - Cardiovascular Exam Cardiovascular Exam: +S1, +S2 - GI/Abdominal Exam GI & Abdominal Exam: Soft, Normal Bowel Sounds. absent: Guarding, Tenderness, Rebound - Extremities Exam Extremities Exam: absent: Calf Tenderness, Pedal Edema - Neurological Exam Neurological Exam: Alert, Awake - Skin Skin Exam: Dry, Warm Assessment and Plan - Assessment and Plan (Free Text) Assessment: Assessment: s/p Hematemesis, H/H stable, no further N/V UTI Sepsis, blood culture revealed gram-positive cocci Staghorn Renal Calculi Cerebral palsy Hypertension Plan: continue Protonix 40 IV daily continue pure/thick liquids on IVF monitor H/H and for overt GI bleeding on IV antibiotics as per ID urology eval Seen and discussed w/ Dr. Rodriguez <Kiya Rodriguez V - Last Filed: 07/20/17 21:29> Objective - Vital Signs/Intake and Output Vital Signs (last 24 hours): Temp Pulse Resp BP Pulse Ox 98.9 F 99 H 20 110/84 98 07/20/17 16:00 07/20/17 18:00 07/20/17 16:00 07/20/17 17:55 07/20/17 16:00 - Medications Medications: Current Medications Acetaminophen (Tylenol 650 Mg Supp) 650 mg RC Q4H PRN PRN Reason: fever Acetaminophen (Tylenol 650 Mg Supp) 650 mg RC Q4H PRN PRN Reason: Pain, Mild (1-3) Last Admin: 07/20/17 01:35 Dose: 650 mg Albuterol/Ipratropium (Duoneb 3 Mg/0.5 Mg (3 Ml) Ud) 3 ml IH Q6 PRN PRN Reason: Cough and congestion Sodium Chloride (Sodium Chloride 0.9%) 1,000 mls @ 100 mls/hr IV .Q10H [facility] Last Admin: 07/19/17 21:19 Dose: 100 mls/hr Cefepime HCl (Maxipime 2gm) 2 gm in 100 mls @ 100 mls/hr IVPB Q8 [facility] PRN Reason: Protocol Stop: 07/23/17 14:01 Last Admin: 07/20/17 14:44 Dose: 100 mls/hr Vancomycin HCl (Vancomycin 1gm) 1 gm in 250 mls @ 167 mls/hr IVPB Q12H [facility] PRN Reason: Protocol Last Admin: 07/20/17 10:25 Dose: 167 mls/hr Metoprolol Tartrate (Lopressor) 25 mg PO BID [facility] Last Admin: 07/20/17 17:55 Dose: 25 mg Pantoprazole Sodium (Protonix Inj) 40 mg IVP DAILY [facility] Last Admin: 07/20/17 09:10 Dose: 40 mg - Labs Labs: 07/20/17 08:56 07/20/17 06:51 PT 11.3 Seconds (9.9-11.8) 07/18/17 04:00 INR 1.05 (0.93-1.08) 07/18/17 04:00 APTT 29.0 Seconds (23.7-30.8) 07/18/17 04:00 Attending/Attestation - Attestation I have personally seen and examined this patient.: Yes I have fully participated in the care of the patient.: Yes I have reviewed all pertinent clinical information, including history, physical exam and plan: Yes Notes (Text): This is an addendum to GI progress report dictated by Anay John APN.The patient was seen and examined earlier. Medical records, lab studies, imagings were reviewed. Last 24 hours events reviewed. Agreed with the above treatment plan as outlined in Anay John APN's notes the with the addition of the following on examination abdomen soft no tenderness No further episodes of vomiting. Tolerating the diet. Follow up with a hemoglobin hematocrit. Positive blood cultures on antibiotics as per ID Positive urine analysis is positive,staghorn calculi 07/20/17 21:28
--- NOTE | 2017-07-20 17:28 | PN ---
DATE: 07/20/2017 SUBJECTIVE: The patient is in bed, in room #365, bed #1. No fevers and no chills. OBJECTIVE: VITAL SIGNS: On exam, temperature is 98, blood pressure is 106/80 and respiratory rate of 18. EXAMINATION OF HEENT: Unremarkable. NECK: Supple. LUNGS: Decreased breath sounds. HEART EXAM: Normal S1 and S2. ABDOMEN EXAMINATION: Soft and nontender. LABORATORY EXAMINATION: Reveals a white count of 12,700; hemoglobin of 10. BUN of 5, creatinine of 0.5 and microbiology reveals the blood cultures are positive for Gram-positive cocci in both blood cultures, but they are coag-negative staph and urine cultures have no growth. REVIEW OF ORDERS: Reveals the patient to be on cefepime and vancomycin and repeat blood cultures were ordered yesterday. Echocardiogram is pending. ASSESSMENT AND PLAN: A 52-year-old female with dementia, cerebral palsy, hypertension, diabetes, irritable bowel syndrome, episode of coffee-ground emesis at long term, systemic inflammatory response syndrome, Gram-positive cocci bacteremia with gastrointestinal bleed and contamination versus bacteremia versus endocarditis. We will check on the repeat cultures. We will continue the vancomycin. We will check on the echo and we will make further recommendation. Georgi Goldstein MD
[2017-07-20] MEDS: Sodium Chloride 0.9% 1,000 ML IV SCH (21:37)
--- NOTE | 2017-07-21 01:25 | PN ---
DATE: SUBJECTIVE: The patient is a 52-year-old female. The patient was seen and examined on the bedside, looking as comfortable, no change in the status. No headache, no dizziness, no fever, no chills. The patient is not able to give review of system. PHYSICAL EXAMINATION: VITAL SIGNS: Temperature 99.2, pulse 83, respiratory rate 20, blood pressure 106/86, and pulse oximetry 97%. HEENT: Head is normocephalic and atraumatic. Eyes; PERRLA. Extraocular muscles are intact. Conjunctivae are clear. Nose is patent. Mucous membranes are moist. NECK: Supple. No carotid bruits. No JVD or thyromegaly. CHEST: Bilaterally symmetrical. HEART: S1 and S2 positive. LUNGS: Clear to auscultation. ABDOMEN: Soft. Bowel sounds positive. No organomegaly. EXTREMITIES: No edema. No cyanosis. NEUROLOGIC: The patient is awake and alert. Moving all four extremities. No focal deficits. MEDICATIONS: Tylenol, DuoNeb, NS, Maxipime, vancomycin, iron, metoprolol, pantoprazole, and potassium. LABORATORY DATA: White blood cells 12.7, hemoglobin 10.7, hematocrit 34.1, and platelets 352. Sodium 145, potassium 3.4, BUN 6, creatinine 0.6, and glucose 105. ASSESSMENT AND PLAN: Ms. Anay Velazco is a 52-year-old lady with urinary tract infection, on Maxipime, rule out upper gastrointestinal bleeding, cerebral palsy with developmental disability, and hypertension. Blood culture is positive. Discussion done with nurse practitionerIdania. Continue antibiotics. ID is on the case. GI is on the case. Seen by Dr. Goldstein, Infectious Disease and Anay John. Status post hematemesis. No further nausea or vomiting. H and H is stable. Blood culture revealed Gram-positive cocci. Staghorn calculi. Continue Protonix IV. The patient is getting pureed like thick liquid. She has anemia, leukocytosis, and hypokalemia, replaced. GI and DVT prophylaxis. Repeat labs. We will follow. Bety Nelson MD
[2017-07-21] MEDS: Cefepime IV 2 gm in NS 2 GM/100 ML BAG IVPB SCH ×2 (06:27→15:11)
[2017-07-21] MEDS: Sodium Chloride 0.9% 1,000 ML IV SCH (06:30)
[2017-07-21 06:37] LABS: MEAN CELL VOLUME 77.4 fl (80.0-105.0); MEAN CORPUSCULAR HEMOGLOBIN 23.8 pg (25.0-35.0); MEAN CORPUSCULAR HGB CONC 30.8 g/dl (31.0-37.0); MEAN PLATELET VOLUME 10.3 fl (7.0-11.0); RED CELL DISTRIBUTION WIDTH 16.4 % (11.5-14.5); WHITE BLOOD COUNT 10.2 10^3/ul (4.5-11.0)
[2017-07-21 07:01] LABS: ALB/GLOB RATIO 1.2 (1.1-1.8); ALKALINE PHOSPHATASE 88 U/L (38-126); ALT/SGPT 40 U/L (7-56); AST/SGOT 26 U/L (14-36); BILIRUBIN,TOTAL 0.9 mg/dL (0.2-1.3); BLOOD UREA NITROGEN 6 mg/dL (7-21); CALCIUM 8.9 mg/dL (8.4-10.5); CARBON DIOXIDE 22 mmol/L (21-33); CHLORIDE 115 mmol/L (95-110); GFR AFRICAN-AMERICAN > 60; GLUCOSE,RANDOM 105 mg/dL (70-110); POTASSIUM 4.1 mmol/L (3.6-5.0); SODIUM 147 mmol/L (132-148); TOTAL PROTEIN 7.3 g/dL (5.8-8.3)
[2017-07-21 08:02] VITALS: RESP 20
[2017-07-21] MEDS: Vancomycin 1gm in NS 250ml 1 GM/250 ML BAG IVPB SCH (09:11)
--- NOTE | 2017-07-21 12:43 | CP.PCM.PN ---
<Anay John - Last Filed: 07/21/17 12:40> Subjective - Date & Time of Evaluation Date of Evaluation: 07/21/17 Time of Evaluation: 10:25 - Subjective Subjective: Seen and examined at the bedside earlier today, the chart was reviewed. No acute overnight event reported. Patient had a BM last night, no reports of any hematemesis or bleeding per rectum. Objective - Vital Signs/Intake and Output Vital Signs (last 24 hours): Temp Pulse Resp BP Pulse Ox 97.6 F 92 H 20 150/86 97 07/21/17 08:01 07/21/17 09:18 07/21/17 08:01 07/21/17 09:18 07/21/17 08:01 Intake and Output: 07/21/17 07/21/17 06:59 18:59 Intake Total 2840 60 Output Total 1400 1300 Balance 1440 -1240 - Medications Medications: Current Medications Acetaminophen (Tylenol 650 Mg Supp) 650 mg RC Q4H PRN PRN Reason: fever Acetaminophen (Tylenol 650 Mg Supp) 650 mg RC Q4H PRN PRN Reason: Pain, Mild (1-3) Last Admin: 07/21/17 01:35 Dose: 650 mg Albuterol/Ipratropium (Duoneb 3 Mg/0.5 Mg (3 Ml) Ud) 3 ml IH Q6 PRN PRN Reason: Cough and congestion Sodium Chloride (Sodium Chloride 0.9%) 1,000 mls @ 100 mls/hr IV .Q10H [facility] Last Admin: 07/21/17 06:30 Dose: 100 mls/hr Cefepime HCl (Maxipime 2gm) 2 gm in 100 mls @ 100 mls/hr IVPB Q8 [facility] PRN Reason: Protocol Stop: 07/23/17 14:01 Last Admin: 07/21/17 06:27 Dose: 100 mls/hr Vancomycin HCl (Vancomycin 1gm) 1 gm in 250 mls @ 167 mls/hr IVPB Q12H [facility] PRN Reason: Protocol Last Admin: 07/21/17 09:11 Dose: 167 mls/hr Metoprolol Tartrate (Lopressor) 25 mg PO BID [facility] Last Admin: 07/21/17 09:18 Dose: Not Given Pantoprazole Sodium (Protonix Inj) 40 mg IVP DAILY [facility] Last Admin: 07/21/17 09:10 Dose: 40 mg - Labs Labs: 07/21/17 06:00 07/21/17 06:00 PT 11.3 Seconds (9.9-11.8) 07/18/17 04:00 INR 1.05 (0.93-1.08) 07/18/17 04:00 APTT 29.0 Seconds (23.7-30.8) 07/18/17 04:00 - Constitutional Appears: No Acute Distress - Eye Exam Eye Exam: Normal appearance. absent: Scleral icterus - Neck Exam Neck Exam: Normal Inspection - Respiratory Exam Respiratory Exam: NORMAL BREATHING PATTERN. absent: Respiratory Distress - Cardiovascular Exam Cardiovascular Exam: +S1, +S2 - GI/Abdominal Exam GI & Abdominal Exam: Soft, Normal Bowel Sounds. absent: Guarding, Tenderness, Rebound - Extremities Exam Extremities Exam: Normal Capillary Refill. absent: Pedal Edema - Neurological Exam Neurological Exam: Alert, Awake, Oriented x3 - Skin Skin Exam: Dry, Warm Assessment and Plan - Assessment and Plan (Free Text) Assessment: Assessment: s/p Hematemesis, H/H stable, no further N/V UTI Sepsis, blood culture revealed gram-positive cocci Staghorn Renal Calculi Cerebral palsy Hypertension Plan: continue Protonix 40 IV daily continue pure/thick liquids on IVF monitor H/H and for overt GI bleeding on IV antibiotics as per ID may benefit from endoscopy at one point, will have to discuss w/ family, thus far no hematemesis and h/h steady Seen and discussed w/ Dr. Rodriguez <Kiya Rodriguez V - Last Filed: 07/21/17 23:12> Objective - Vital Signs/Intake and Output Vital Signs (last 24 hours): Temp Pulse Resp BP Pulse Ox 98.6 F 100 H 20 127/93 H 98 07/21/17 16:00 07/21/17 17:17 07/21/17 16:00 07/21/17 17:17 07/21/17 16:00 Intake and Output: 07/21/17 07/22/17 18:59 06:59 Intake Total 660 Output Total 2100 Balance -1440 - Labs Labs: 07/21/17 06:00 07/21/17 06:00 PT 11.3 Seconds (9.9-11.8) 07/18/17 04:00 INR 1.05 (0.93-1.08) 07/18/17 04:00 APTT 29.0 Seconds (23.7-30.8) 07/18/17 04:00 Attending/Attestation - Attestation I have personally seen and examined this patient.: Yes I have fully participated in the care of the patient.: Yes I have reviewed all pertinent clinical information, including history, physical exam and plan: Yes Notes (Text): This is an addendum to GI progress report dictated by Anay John APN.The patient was seen and examined earlier. Medical records, lab studies, imagings were reviewed. Last 24 hours events reviewed. Agreed with the above treatment plan as outlined in Anay John APN's notes the with the addition of the following no further episodes of vomiting Abdomen soft no tenderness Continue antibiotics as per ID if any recurrence of vomiting or GI bleeding with consider upper GI endoscopy 07/21/17 23:11
--- NOTE | 2017-07-21 13:15 | CP.PCM.PN ---
Subjective - Date & Time of Evaluation Date of Evaluation: 07/21/17 Time of Evaluation: 08:15 - Subjective Subjective: NAD, non-verbal Objective - Vital Signs/Intake and Output Vital Signs (last 24 hours): Temp Pulse Resp BP Pulse Ox 97.6 F 92 H 20 150/86 97 07/21/17 08:01 07/21/17 09:18 07/21/17 08:01 07/21/17 09:18 07/21/17 08:01 Intake and Output: 07/21/17 07/21/17 06:59 18:59 Intake Total 2840 60 Output Total 1400 1300 Balance 1440 -1240 - Medications Medications: Current Medications Acetaminophen (Tylenol 650 Mg Supp) 650 mg RC Q4H PRN PRN Reason: fever Acetaminophen (Tylenol 650 Mg Supp) 650 mg RC Q4H PRN PRN Reason: Pain, Mild (1-3) Last Admin: 07/21/17 01:35 Dose: 650 mg Albuterol/Ipratropium (Duoneb 3 Mg/0.5 Mg (3 Ml) Ud) 3 ml IH Q6 PRN PRN Reason: Cough and congestion Sodium Chloride (Sodium Chloride 0.9%) 1,000 mls @ 100 mls/hr IV .Q10H [facility] Last Admin: 07/21/17 06:30 Dose: 100 mls/hr Cefepime HCl (Maxipime 2gm) 2 gm in 100 mls @ 100 mls/hr IVPB Q8 [facility] PRN Reason: Protocol Stop: 07/23/17 14:01 Last Admin: 07/21/17 06:27 Dose: 100 mls/hr Vancomycin HCl (Vancomycin 1gm) 1 gm in 250 mls @ 167 mls/hr IVPB Q12H [facility] PRN Reason: Protocol Last Admin: 07/21/17 09:11 Dose: 167 mls/hr Metoprolol Tartrate (Lopressor) 25 mg PO BID [facility] Last Admin: 07/21/17 09:18 Dose: Not Given Pantoprazole Sodium (Protonix Inj) 40 mg IVP DAILY [facility] Last Admin: 07/21/17 09:10 Dose: 40 mg - Labs Labs: 07/21/17 06:00 07/21/17 06:00 PT 11.3 Seconds (9.9-11.8) 07/18/17 04:00 INR 1.05 (0.93-1.08) 07/18/17 04:00 APTT 29.0 Seconds (23.7-30.8) 07/18/17 04:00 - Respiratory Exam Respiratory Exam: Clear to Ausculation Bilateral, NORMAL BREATHING PATTERN - Cardiovascular Exam Cardiovascular Exam: REGULAR RHYTHM - GI/Abdominal Exam GI & Abdominal Exam: Soft, Normal Bowel Sounds - Neurological Exam Neurological Exam: Altered, Awake - Skin Skin Exam: Dry, Warm Assessment and Plan (1) UTI (urinary tract infection) Status: Acute (2) GI bleed Status: Acute (3) Cerebral palsy Status: Acute (4) Cerebral palsy not affecting current episode of care Status: Acute (5) Developmental disability Status: Acute - Assessment and Plan (Free Text) Plan: continue ID/GI follow-up, pressure ulcer prophylaxis/positioning
--- NOTE | 2017-07-21 14:47 | CARD ---
APPROVED REPORT EXAM: Two-dimensional and M-mode echocardiogram with Doppler and color Doppler. INDICATION Infection:Rule out subacute bacterial endocarditis 2D DIMENSIONS IVSd0.8 (0.7-1.1cm)LVDd3.8 (3.9-5.9cm) PWd1.0 (0.7-1.1cm)LVDs2.4 (2.5-4.0cm) FS (%) 36.0 %LVEF (%)66.3 (>50%) M-Mode DIMENSIONS Aortic Root2.40 (2.2-3.7cm)Aortic Cusp Exc.1.50 (1.5-2.0cm) Aortic Valve AoV Peak Kbvcefad017.0cm/Bang Peak GR.14mmHg Mitral Valve MV E Qdsasfhj35.6cm/sMV A Diwpxnmp492.0cm/sE/A ratio0.8 TDI E/Lateral E'0.0E/Medial E'0.0 Pulmonary Valve PV Peak Vubqxzsf555.0cm/sPV Peak Grad.7mmHg Tricuspid Valve TR Peak Kychizmx321bq/sRAP [id number] Peak Gr.17mmHg [id number] LEFT VENTRICLE The left ventricle is normal size. There is normal left ventricular wall thickness. The left ventricular function is normal.EF-65% There is normal LV segmental wall motion. Transmitral Doppler flow pattern is Grade III-reversible restrictive diastolic dysfunction. No left ventricle thrombus noted on this study. There is no ventricular septal defect visualized. There is no left ventricular aneurysm. There is no mass noted in the left ventricle. RIGHT VENTRICLE The right ventricle is normal size. There is normal right ventricular wall thickness. The right ventricular systolic function is normal. ATRIA The left atrium size is normal. The right atrium size is normal. The interatrial septum is intact with no evidence for an atrial septal defect. AORTIC VALVE The aortic valve is thickened but opens well. There is trace aortic regurgitation. There is no aortic valvular stenosis. There is no aortic valvular vegetation. MITRAL VALVE The mitral valve is thickened but opens well. Mitral regurgitation is trace. There is no mitral valve stenosis. There is no evidence of mitral valve prolapse. TRICUSPID VALVE The tricuspid valve leaflets are thickened , but open well. There is trace tricuspid regurgitation.RVSP_27 mmof Hg. There is no tricuspid valve stenosis. There is no tricuspid valve prolapse or vegetation. PULMONIC VALVE The pulmonary valve is normal in structure. GREAT VESSELS The aortic root is normal in size. The ascending aorta is normal in size. The pulmonary artery is normal. The IVC is normal in size and collapses >50% with inspiration. PERICARDIAL EFFUSION There is no pleural effusion. There is no pericardial effusion. <Conclusion> Normal chamber Size. EF-65% Trace MR/TR/AR RVSP-27 mmof hg, No Vegetation noted.
[2017-07-21 17:17] VITALS: BP 127/93; PULSE 100
--- NOTE | 2017-07-21 17:35 | PN ---
SUBJECTIVE: The patient is in bed in no acute distress, nontoxic on exam. PHYSICAL EXAMINATION: VITAL SIGNS: Temperature is 98, blood pressure is 120/70, respiratory rate of 16. HEENT: Unremarkable. NECK: Supple. LUNGS: Decreased breath sounds. HEART: Normal S1 and S2. ABDOMEN: Soft, nontender. LABORATORY EXAMINATION: Reviewed. Reveals white count is down to 10,000, hemoglobin of 11, platelets of 317. Chemistries are noted. Urinalysis is noted and microbiology reveals a coag negative staph in the blood cultures. Dr. Canas's note is reviewed. ASSESSMENT AND PLAN: A 52-year-old female with dementia, cerebral palsy, hypertension, diabetes, irritable bowel syndrome, episode of coffee-ground emesis at half-way, systemic inflammatory response syndrome, gram-positive cocci bacteremia, gastrointestinal bleed, contaminated versus bacteremia versus carditis. I am still waiting for echo results which are pending, and we will continue treating with cefepime for a possible urinary tract infection. Antibiotics were given prior to collection of the urine. Georgi Goldstein MD
[2017-07-21 18:53] VITALS: TEMP 98.6; O2SAT 98
[2017-07-21] MEDS ORDERED: Cefpodoxime (Vantin) 200 mg Tab PO SCH (22:00)
== END 2017-07-21 20:22 | DRG 377 ==
LOC: ED 22:56 → ERH 07-18 06:03 → 3RNO 07-18 12:58
PROVIDERS: ADMIT Internal Medicine; ATTEND Internal Medicine
DX: K92.0 Hematemesis (principal); A41.1 Sepsis due to other specified staphylococcus; E87.0 Hyperosmolality and hypernatremia; N39.0 Urinary tract infection, site not specified; R47.01 Aphasia; E10.65 Type 1 diabetes mellitus with hyperglycemia; E87.8 Other disorders of electrolyte and fluid balance, not elsewhere classified; D50.9 Iron deficiency anemia, unspecified; I10 Essential (primary) hypertension; F02.80 Dementia in other diseases classified elsewhere, unspecified severity, without behavioral disturbance, psychotic disturbance, mood disturbance, and anxiety; E87.6 Hypokalemia; K58.9 Irritable bowel syndrome, unspecified; G80.9 Cerebral palsy, unspecified; M81.0 Age-related osteoporosis without current pathological fracture; R32 Unspecified urinary incontinence; N20.0 Calculus of kidney; Z99.3 Dependence on wheelchair; R80.9 Proteinuria, unspecified; R31.9 Hematuria, unspecified

== ENCOUNTER 2017-11-13 04:47 | Inpatient (IN) | payer MEDICARE, MEDICAID ==
[2017-11-13] MEDS ORDERED: Vancomycin 1gm in NS 250ml 1 GM/250 ML BAG IVPB STA (05:04)
--- NOTE | 2017-11-13 05:04 | ED PDOC ---
Arrival/HPI - General Time Seen by Provider: 11/13/17 04:54 Historian: Residential - History of Present Illness Narrative History of Present Illness (Text): 11/13/17 05:03 Anay Velazco is a 52 year old female, whose past medical history includes dementia, cerebral palsy, hypertension, diabetes, osteoporosis, and urinary incontinence, who presents to the Emergency department transferred from [facility] for coffee ground emesis tonight. Patient also reports right arm pain. Limited HPI and ROS due to patient's dementia. Time/Duration: Other (tonight) Symptom Onset: Gradual Symptom Course: Unchanged Activities at Onset: Light Context: Home ([facility]) Past Medical History - Provider Review Nursing Documentation Reviewed: Yes - Infectious Disease Hx of Infectious Diseases: None - Tetanus Immunization Tetanus Immunization: Unknown - Reproductive Menopause: No - Past Medical History Past Medical History: No Previous - Cardiac Hx Cardiac Disorders: Yes Hx Hypertension: Yes - Pulmonary Hx Respiratory Disorders: Yes Hx Chronic Obstructive Pulmonary Disease (COPD): Yes - Neurological Hx Neurological Disorder: No - HEENT Hx HEENT Disorder: No - Renal Hx Renal Disorder: No - Endocrine/Metabolic Hx Diabetes Mellitus Type 1: Yes - Hematological/Oncological Hx Blood Transfusions: No Hx Blood Transfusion Reaction: No - Integumentary Hx Dermatological Disorder: No - Musculoskeletal/Rheumatological Hx Musculoskeletal Disorders: No - Gastrointestinal Hx Gastrointestinal Disorders: Yes Other/Comment: irritable bowel synd - Genitourinary/Gynecological Hx Incontinence: Yes - Psychiatric Hx Psychophysiologic Disorder: No Hx Substance Use: No - Past Surgical History Past Surgical History: Unable to Obtain - Surgical History Other/Comment: - Anesthesia Hx Anesthesia Reactions: No Hx Malignant Hyperthermia: No - Suicidal Assessment Feels Threatened In Home Enviroment: No Family/Social History - Physician Review Nursing Documentation Reviewed: Yes Family/Social History: Unknown Family HX Smoking Status: Never Smoked Hx Alcohol Use: No Hx Substance Use: No Hx Substance Use Treatment: No Allergies/Home Meds Allergies/Adverse Reactions: Allergies No Known Allergies Allergy (Verified 11/13/17 05:02) Home Medications: Home Meds Medication Instructions Recorded Confirmed Polyethylene Glycol 3350 [Miralax] 17 gm PO DAILY 06/13/13 11/13/17 Sorbitol Solution [Sorbitol] 15 ml PO DAILY 06/13/13 11/13/17 Albuterol/Ipratropium [Duoneb 3 3 ml IH Q6 PRN 10/14/13 02/04/18 mg/0.5 mg (3 ml) UD] Cetirizine HCl [Zyrtec] 10 mg PO DAILY 07/18/17 11/13/17 Enoxaparin [Lovenox] 40 mg SQ DAILY 07/18/17 11/13/17 Metoprolol Tartrate [Lopressor] 25 mg PO BID 07/18/17 11/13/17 Montelukast [Singulair] 10 mg PO HS 07/18/17 11/13/17 Multivitamin/Iron/Folic Acid [Hm 1 tab PO DAILY 07/18/17 11/13/17 Complete [id number]] Omeprazole 40 mg PO DAILY 07/18/17 11/13/17 Simethicone [Bicarsim] 0.5 tab PO DAILY 07/18/17 11/13/17 amLODIPine [Norvasc] 10 mg PO DAILY 07/18/17 11/13/17 Bisacodyl [Ducolax] 10 mg RC ONCE PRN 11/13/17 11/13/17 Ondansetron [Zofran Inj] 4 mg IM Q4 PRN 11/13/17 11/13/17 Review of Systems - Review of Systems Systems not reviewed;Unavailable: Dementia Gastrointestinal: Vomiting, Hematemesis Musculoskeletal: Other (+right arm pain) Skin: Normal Physical Exam Vital Signs Reviewed: Yes Vital Signs Temp Pulse Resp BP Pulse Ox 11/13/17 09:57 98 F 101 H 20 118/72 98 11/13/17 07:34 98.5 F 86 19 122/72 97 11/13/17 06:29 99.1 F 119 H 18 130/72 100 11/13/17 04:56 134 H 17 101/63 94 L Temperature: Afebrile Blood Pressure: Normal Pulse: Regular Respiratory Rate: Normal Appearance: Positive for: Well-Appearing, Non-Toxic, Comfortable Pain Distress: None Mental Status: Positive for: other (Alert) - Systems Exam Head: Present: Atraumatic, Normocephalic Pupils: Present: PERRL Extroacular Muscles: Present: EOMI Conjunctiva: Present: Normal Mouth: Present: Moist Mucous Membranes Neck: Present: Normal Range of Motion Respiratory/Chest: Present: Clear to Auscultation, Good Air Exchange. No: Respiratory Distress, Accessory Muscle Use Cardiovascular: Present: Regular Rate and Rhythm, Normal S1, S2. No: Murmurs Abdomen: Present: Normal Bowel Sounds. No: Tenderness, Distention, Peritoneal Signs Back: Present: Normal Inspection Upper Extremity: Present: Erythema (Right arm cellulitis). No: Cyanosis, Edema Lower Extremity: Present: Normal Inspection. No: Edema Neurological: Present: GCS=15, CN II-XII Intact Skin: Present: Warm, Dry, Normal Color. No: Rashes Psychiatric: Present: Alert Medical Decision Making ED Course and Treatment: 11/13/17 05:03 Impression: 52 year old female sent from alf for coffee ground emesis tonight. Plan: -- EKG -- Chest X-ray -- Labs, VBG, blood cultures, blood type and screen -- Urinalysis, urine cultures -- IV fluids -- Vancomycin -- Protonix -- Reassess and disposition Prior Visits: Notes and results from previous visits were reviewed. On 07/17/2017, pt was seen in the Emergency department for coffee ground vomiting. Pt was admitted to the hospital for further evaluation. Progress Notes: 11/13/17 05:29 Chest X-ray reviewed, shows no acute processes. case d/w dr menendez will admit for gi bleed and cellulitis - Lab Interpretations Microbiology Results: Microbiology Results 11/13/17 07:00 Urine,Clean Catch Urine Culture - Preliminary Gram Negative Adam Lab Results: 11/13/17 06:05 11/13/17 06:05 Lab Results 11/13/17 07:00: Urine Color Yellow, Urine Appearance Slight-cloudy, Urine pH 8.5 , Ur Specific [place] 1.015, Urine Protein 30 H, Urine Glucose (UA) Negative, Urine Ketones Negative, Urine Blood Small H, Urine Nitrate Negative, Urine Bilirubin Negative, Urine Urobilinogen 0.2, Ur Leukocyte Esterase Large H, Urine RBC 0 - 2, Urine WBC 5 - 10, Ur Epithelial Cells 1 - 3, Amorphous Sediment Small, Urine Bacteria Neg 11/13/17 06:30: Hepatitis A IgM Ab Negative, Hep Bs Antigen Negative, Hep B Core IgM Ab Negative, Hepatitis C Antibody Negative 11/13/17 06:05: Sodium 150 H, Chloride 112 H, Potassium 4.1, Carbon Dioxide 26, Anion Gap 15, BUN 34 H, Creatinine 0.7, Est GFR ( Amer) > 60, Est GFR ( Non-Af Amer) > 60, Random Glucose 160 H, Calcium 9.2, Phosphorus 2.4 L, Magnesium 2.1, Total Bilirubin 0.4, AST 32, ALT 58 H, Alkaline Phosphatase 75, Total Protein 6.6, Albumin 3.2, Globulin 3.3, Albumin/Globulin Ratio 1.0 L 11/13/17 06:05: pO2 105 H, VBG pH 7.44 H, VBG pCO2 43.0, VBG HCO3 29.2 H, VBG Total CO2 30.5 H, VBG O2 Sat (Calc) 99.5 H, VBG Base Excess 4.4 H, VBG Potassium 4.2, Sodium 146.0, Chloride 115.0 H, Glucose 171 H, Lactate 2.0, FiO2 21.0, Venous Blood Potassium 4.2 11/13/17 06:05: PT 12.3, INR 1.07, APTT 26.6 11/13/17 06:05: WBC 17.2 H D, RBC 4.71, Hgb 11.4 L, Hct 38.6, MCV 82.0 D, MCH 24.2 L, MCHC 29.5 L, RDW 16.6 H, Plt Count 428, MPV 11.0, Gran % 82.4 H, Lymph % (Auto) 12.4 L, [place] % (Auto) 4.4, Eos % (Auto) 0.4 L, Baso % (Auto) 0.4, Gran # 14.20 H, Lymph # (Auto) 2.1, [place] # (Auto) 0.8 H, Eos # (Auto) 0.1, Baso # ( Auto) 0.07 - RAD Interpretation Radiology Orders: 11/13/17 05:04 CHEST PORTABLE [RAD] Stat Transfer Driver: ED Physician - Medication Orders Current Medication Orders: Acetaminophen (Tylenol 325mg Tab) 650 mg PO Q4H PRN PRN Reason: Fever >100.5 F Albuterol/Ipratropium (Duoneb 3 Mg/0.5 Mg (3 Ml) Ud) 3 ml IH [id number] CHHAYA Last Admin: 11/14/17 13:18 Dose: 3 ml Fluticasone Propionate (Flonase) 1 actuation NS Q12 CHAHYA Last Admin: 11/14/17 09:56 Dose: 1 spr Vancomycin HCl (Vancomycin 1gm) 1 gm in 250 mls @ 167 mls/hr IVPB Q12H CHHAYA PRN Reason: Protocol Last Admin: 11/14/17 09:57 Dose: 167 mls/hr eMAR Start Stop Document 11/14/17 09:57 DEL (Rec: 11/14/17 09:58 DEL [id number]) Intravenous Solution Start Date 11/14/17 Start Time 09:57 End Date 11/14/17 End time 11:30 Total Infusion Time 93 Meropenem/Sodium Chloride (Meropenem 1g/Ns 100ml Ivpb) 1 gm in 100 mls @ 100 mls/hr IVPB Q8 CHHAYA PRN Reason: Protocol Stop: 11/27/17 14:01 Last Admin: 11/14/17 14:26 Dose: 100 mls/hr eMAR Start Stop Document 11/14/17 14:26 DEL (Rec: 11/14/17 14:26 DEL [id number]) Intravenous Solution Start Date 11/14/17 Start Time 14:26 End Date 11/14/17 End time 15:25 Total Infusion Time 59 Sodium Chloride (Sodium Chloride 0.9%) 1,000 mls @ 50 mls/hr IV .Q20H CHHAYA Last Admin: 11/14/17 14:26 Dose: 50 mls/hr eMAR Start Stop Document 11/14/17 14:26 DEL (Rec: 11/14/17 14:26 DEL [id number]) Intravenous Solution Start Date 11/14/17 Start Time 14:26 Metoprolol Tartrate (Lopressor) 25 mg PO BRKDIN [facility] Last Admin: 11/14/17 17:05 Dose: 25 mg Ondansetron HCl (Zofran Inj) 4 mg IVP Q6H PRN PRN Reason: Nausea/Vomiting Last Admin: 11/13/17 14:15 Dose: 4 mg IVP Administration Document 11/13/17 14:15 [id number] (Rec: 11/13/17 14:15 [email or web address] [id number]) Charges for Administration # of IVP Administrations 1 Pantoprazole Sodium (Protonix Inj) 40 mg IVP DAILY [facility] Last Admin: 11/14/17 09:53 Dose: 40 mg IVP Administration Document 11/14/17 09:53 DEL (Rec: 11/14/17 09:53 DEL [id number]) Charges for Administration # of IVP Administrations 1 Sodium Chloride ([place] Nasal [place]) 2 ml NS Q4 CHHAYA Last Admin: 11/14/17 17:05 Dose: 1 spr Discontinued Medications Sodium Chloride (Sodium Chloride 0.9%) 1,000 mls @ 125 mls/hr IV .Q8H CHHAYA Vancomycin HCl (Vancomycin 1gm) 1 gm in 250 mls @ 167 mls/hr IVPB STAT STA PRN Reason: Protocol Stop: 11/13/17 06:33 Last Admin: 11/13/17 07:52 Dose: 167 mls/hr eMAR Start Stop Document 11/13/17 07:52 GMI (Rec: 11/13/17 07:52 GMI [id number]) Intravenous Solution Start Date 11/13/17 Start Time 07:52 End Date 11/13/17 End time 09:47 Total Infusion Time 115 Sodium Chloride (Sodium Chloride 0.9%) 1,000 mls @ 1,000 mls/hr IV .Q1H [facility]AYA Stop: 11/13/17 06:14 Last Admin: 11/13/17 06:13 Dose: 1,000 mls/hr eMAR Start Stop Document 11/13/17 06:13 AD (Rec: 11/13/17 06:13 AD [id number]) Intravenous Solution Start Date 11/13/17 Start Time 06:13 Sodium Chloride (Sodium Chloride 0.9%) 1,000 mls @ 100 mls/hr IV .Q10H STA Stop: 11/13/17 16:46 Last Admin: 11/13/17 07:51 Dose: 100 mls/hr eMAR Start Stop Document 11/13/17 07:51 GMI (Rec: 11/13/17 07:50 GMI [id number]) Intravenous Solution Start Date 11/13/17 Start Time 07:50 Piperacillin Sod/Tazobactam Sod (Zosyn 3.375 In Ns 100ml) 100 mls @ 200 mls/hr IVPB STAT STA PRN Reason: Protocol Stop: 11/13/17 07:14 Last Admin: 11/13/17 07:15 Dose: 200 mls/hr eMAR Start Stop Document 11/13/17 07:15 AD (Rec: 11/13/17 07:34 AD [id number]) Intravenous Solution Start Date 11/13/17 Start Time 07:15 Sodium Chloride (Sodium Chloride 0.9%) 1,000 mls @ 50 mls/hr IV .Q20H STA Stop: 11/14/17 02:46 Last Admin: 11/13/17 14:15 Dose: 50 mls/hr eMAR Start Stop Document 11/13/17 14:15 [id number] (Rec: 11/13/17 14:15 [id number]) Intravenous Solution Start Date 11/13/17 Start Time 14:15 End Date 11/13/17 Metoprolol Tartrate (Lopressor) 25 mg PO STAT STA Stop: 11/13/17 13:35 Last Admin: 11/13/17 14:14 Dose: 25 mg MAR Pulse and Blood Pressure Document 11/13/17 14:14 [id number] (Rec: 11/13/17 14:14 [email or web address] [id number]) Pulse Pulse Rate (60-90) 125 Blood Pressure Blood Pressure (100/60-150/90) 120/60 Ondansetron HCl (Zofran Inj) 4 mg IVP STAT STA Stop: 11/13/17 06:52 Last Admin: 11/13/17 07:00 Dose: 4 mg IVP Administration Document 11/13/17 07:00 AD (Rec: 11/13/17 07:34 AD [id number]) Charges for Administration # of IVP Administrations 1 Pantoprazole Sodium (Protonix Inj) 40 mg IVP ONCE STA Stop: 11/13/17 05:08 Last Admin: 11/13/17 06:31 Dose: 40 mg IVP Administration Document 11/13/17 06:31 AD (Rec: 11/13/17 06:31 AD [id number]) Charges for Administration # of IVP Administrations 1 - Scribe Statement The provider has reviewed the documentation as recorded by the Scribarnol Rivas All medical record entries made by the Scribe were at my direction and personally dictated by me. I have reviewed the chart and agree that the record accurately reflects my personal performance of the history, physical exam, medical decision making, and the department course for this patient. I have also personally directed, reviewed, and agree with the discharge instructions and disposition. Disposition/Present on Arrival - Present on Arrival Any Indicators Present on Arrival: No History of DVT/PE: No History of Uncontrolled Diabetes: No Urinary Catheter: No History of Decub. Ulcer: No History Surgical Site Infection Following: None - Disposition Have Diagnosis and Disposition been Completed?: Yes Diagnosis: Cellulitis of right arm, GI bleed Disposition: HOSPITALIZED Disposition Time: 07:00 Patient Problems: Current Active Problems Problem Status Onset Anemia, iron deficiency Acute Cellulitis of right arm Acute Dehydration Acute Hematuria Acute Hyperchloremia Acute Hypernatremia Acute Hypertriglyceridemia Acute Hypophosphatemia Acute Proteinuria Acute Staghorn calculus Chronic Condition: GOOD
[2017-11-13] MEDS ORDERED: Sodium Chloride 0.9% 1,000 ML IV SCH ×2 (05:15)
[2017-11-13 06:25] LABS: BASO # 0.07 K/mm3 (0.0-2.0); BASO % 0.4 % (0.0-3.0); EOS # 0.1 (0.0-0.7); EOS % 0.4 % (1.5-5.0); GRAN # 14.2 (1.4-6.5); GRAN % 82.4 % (50.0-68.0); HEMOGLOBIN 11.4 g/dL (12.0-16.0); LYMPH # 2.1 (1.2-3.4); LYMPH % 12.4 % (22.0-35.0); MEAN CORPUSCULAR HEMOGLOBIN 24.2 pg (25.0-35.0); MEAN CORPUSCULAR HGB CONC 29.5 g/dl (31.0-37.0); MONO # 0.8 (0.1-0.6); MONO % 4.4 % (1.0-6.0); RBC 4.71 10^6/uL (3.5-6.1); RED CELL DISTRIBUTION WIDTH 16.6 % (11.5-14.5); WHITE BLOOD COUNT 17.2 10^3/ul (4.5-11.0)
[2017-11-13 06:30] LABS: VENOUS BLOOD GAS BASE EXCESS 4.4 mmol/L (0.0-2.0); VENOUS BLOOD GAS PO2 105 mm/Hg (30-55); VENOUS BLOOD PH 7.44 (7.32-7.43)
[2017-11-13] MEDS ORDERED: Piperacillin/Tazobact 3.375 gm 100 ML IVPB STA (06:45)
[2017-11-13] MEDS ORDERED: Sodium Chloride 0.9% 1,000 ML IV STA ×2 (06:47→13:18)
[2017-11-13 06:50] LABS: ALBUMIN 3.2 g/dL (3.0-4.8); ALT/SGPT 58 U/L (7-56); AST/SGOT 32 U/L (14-36); BLOOD UREA NITROGEN 34 mg/dL (7-21); CALCIUM 9.2 mg/dL (8.4-10.5); GFR AFRICAN-AMERICAN > 60; GFR NON-AFRICAN AMERICAN > 60; INR 1.07 (0.93-1.08); MAGNESIUM 2.1 mg/dL (1.7-2.2); PARTIAL THROMBOPLASTIN TIME 26.6 Seconds (25.1-36.5); PROTHROMBIN TIME 12.3 SECONDS (9.4-12.5)
[2017-11-13 07:39] LABS: PH,URINE 8.5 (4.7-8.0); URINE BILIRUBIN NEGATIVE (NEGATIVE); URINE BLOOD SMALL (NEGATIVE); URINE GLUCOSE (UA) NEGATIVE (NEGATIVE); URINE LEUKOCYTE ESTERASE LARGE Leu/uL (NEGATIVE); URINE NITRATE NEGATIVE (NEGATIVE); URINE PROTEIN 30 mg/dL (<30 mg/dL); URINE UROBILINOGEN 0.2 E.U./dL (<1 E.U./dL)
[2017-11-13 07:42] LABS: URINE APPEARANCE SLIGHT-CLOUDY (CLEAR); URINE COLOR YELLOW (YELLOW)
[2017-11-13 08:14] LABS: URINE AMORPHOUS SEDIMENT SMALL; URINE BACTERIA NEG (NEG); URINE RBC 0 - 2 /hpf (0-2)
--- NOTE | 2017-11-13 09:06 | RAD ---
HISTORY: Sepsis Patient COMPARISON: 07/17/2017 FINDINGS: LUNGS: No active pulmonary disease. PLEURA: No significant pleural effusion identified, no pneumothorax apparent. CARDIOVASCULAR: Normal. OSSEOUS STRUCTURES: No significant abnormalities. VISUALIZED UPPER ABDOMEN: Normal. OTHER FINDINGS: None. IMPRESSION: No active disease.
[2017-11-13] MEDS: Vancomycin 1gm in NS 250ml 1 GM/250 ML BAG IVPB SCH ×2 (09:46→21:24)
[2017-11-13 11:45] LABS: VENOUS BLOOD GAS BASE EXCESS -0.3 mmol/L (0.0-2.0); VENOUS BLOOD GAS PO2 199 mm/Hg (30-55); VENOUS BLOOD PH 7.46 (7.32-7.43)
--- NOTE | 2017-11-13 11:46 | CARD ---
APPROVED REPORT EKG Measurement Heart [id number] AL [id number] [id number] <Conclusion> Sinus tachycardia RSR' or QR pattern in V1 suggests right ventricular conduction delay Possible Inferior infarct, age undetermined Abnormal ECG
--- NOTE | 2017-11-13 13:37 | CT ---
PROCEDURE: CT Abdomen and Pelvis without intravenous contrast HISTORY: vomiting blood inc lfts wbc of 17k COMPARISON: 07/18/2017 CT TECHNIQUE: Without contrast. Contrast Dose: Radiation dose: Total exam DLP = 667 mGy-cm. This CT exam was performed using one or more of the following dose reduction techniques: Automated exposure control, adjustment of the mA and/or kV according to patient size, and/or use of iterative reconstruction technique. FINDINGS: LOWER THORAX: Unremarkable. LIVER: Unremarkable. No gross lesion or ductal dilatation. GALLBLADDER AND BILE DUCTS: Unremarkable. PANCREAS: Unremarkable. No gross lesion or ductal dilatation. SPLEEN: Unremarkable. ADRENALS: Unremarkable. No mass. KIDNEYS AND URETERS: There is a staghorn calculus in the right renal pelvis. This is unchanged. VASCULATURE: Unremarkable. No aortic aneurysm. BOWEL: Unremarkable. No obstruction. No gross mural thickening. APPENDIX: Unremarkable. Normal appendix. PERITONEUM: Unremarkable. No free fluid. No free air. LYMPH NODES: Unremarkable. No enlarged lymph nodes. BLADDER: Unremarkable. REPRODUCTIVE: Unremarkable. BONES: Severe scoliosis convex to the left OTHER FINDINGS: Chronic hip dysplasias IMPRESSION: No acute intra-abdominal findings
[2017-11-13] MEDS: Sodium Chloride 0.9% 1,000 ML IV SCH (14:00)
[2017-11-13] MEDS: Meropenem 1g/NS 100mL IVPB 1 GM/100 ML PIGGYBACK IVPB SCH ×2 (14:15→21:24)
[2017-11-13 17:39] VITALS: BMI 26.2
[2017-11-13] MEDS: Albuterol-Ipratrop 3 mg / 0.5 (3 ml) UD IH SCH (18:20)
--- NOTE | 2017-11-13 20:13 | CON ---
DATE: 11/13/2017 LOCATION: The patient is seen in the emergency room. CHIEF COMPLAINT: The patient had vomiting blood from a residential x1 day and a right arm erythema x1 day. HISTORY OF PRESENT ILLNESS: This is a 52-year-old female with a history of dementia, cerebral palsy, hypertension, diabetes, inflammatory bowel syndrome, who was brought in from the residential because of upper gastrointestinal hemorrhage and has erythema of the right upper arm. The patient does not verbalize. It has been reported she had low-grade fevers. No abdominal pain was reported. No diarrhea. Just vomiting blood. No chest pain, shortness of breath or cough. No headaches have been reported. PAST MEDICAL HISTORY: Significant for dementia, cerebral palsy, hypertension, diabetes, IBS. PAST SURGICAL HISTORY: Significant for a . ALLERGIES: THE PATIENT HAS NO KNOWN ALLERGIES. MEDICATIONS: Medications at the residential include Lovenox and Zyrtec, amlodipine, omeprazole and Singulair and metoprolol. PHYSICAL EXAMINATION: GENERAL: The patient is in bed, no acute distress. VITAL SIGNS: Temperature of 99.1, blood pressure is 130/70, respiratory rate of 18, heart rate of 134, 94% saturation. HEENT: Examination of HEENT is unremarkable. NECK: Supple. LUNGS: Have decreased breath sounds. HEART: Normal S1, S2. ABDOMEN: Soft, nontender. No rebound or guarding. EXTREMITIES: Examination of the right upper arm, there is erythema. No entry site. No trauma. No discharge. LABORATORY DATA: Laboratory examination reveals a white count of 17,000, hemoglobin of 11, platelets of 428, 82% granulocytosis. Coagulation is noted. Chemistries reveals a BUN of 34, creatinine of 0.7. Random glucose is 160 and ALT is 58. Urinalysis is noted. Microbiology is pending. The patient's chest x-ray is negative in the emergency room chart by Dr. Jeet Handy was reviewed. ASSESSMENT AND PLAN: This is a 52-year-old female, residential patient with dementia, cerebral palsy, hypertension, diabetes, irritable bowel syndrome, admitted with vomiting blood, low-grade fevers, tachycardia, hypoxia, leukocytosis. #1 is severe sepsis with a right upper arm cellulitis and acute blood loss, upper gastrointestinal bleed. We will start the patient on vancomycin and meropenem. Pending blood cultures, urine cultures, human immunodeficiency virus, hepatitis profile, CAT scan of the abdomen and pelvis. Gastroenterology consultation requested and we will make further recommendations upon availability of initial results. We will follow closely with you. Georgi Goldstein MD
[2017-11-13] MEDS: Fluticasone Nasal 50 mcg/Spray NS SCH (21:25)
--- NOTE | 2017-11-13 23:57 | CP.PCM.CON ---
History of Present Illness - History of Present Illness History of Present Illness: this 55-year-old senior care resident with a past medical history of cerebral palsy, hypertension, diabetes mellitus, renal stones admitted with the episodes of coffee-ground vomitus. Patient was also found to be having leukocytosis history of low-grade fever. History is mainly from this chart and also patient' s family was at bedside No further episodes of vomiting since admission. Patient's hemoglobin on admission was 11.43 months ago hemoglobin was also 11.4 crit was stable patient was found to be having leukocytosis started on IV antibiotics. OTHER POSSIBLE MEDICAL HISTORY as above. DM ,Patient was hospitalized 3 months ago for similar episodes of coffee-ground vomitus which subsided. Family was reluctant for any invasive workup endoscopy at that time. SOCIAL HISTORY no smoking or call FAMILY HISTORY noncontributory REVIEW OF SYSTEM positive as about other systems reviewed limited Review of Systems - Review of Systems All systems: reviewed and no additional remarkable complaints except Past Patient History - Infectious Disease Hx of Infectious Diseases: None - Tetanus Immunizations Tetanus Immunization: Unknown - Past Social History Smoking Status: Never Smoked - CARDIAC Hx Cardiac Disorders: Yes Hx Hypertension: Yes - PULMONARY Hx Respiratory Disorders: Yes Hx Chronic Obstructive Pulmonary Disease (COPD): Yes - NEUROLOGICAL Hx Neurological Disorder: No - HEENT Hx HEENT Problems: No - RENAL Hx Chronic Kidney Disease: No - ENDOCRINE/METABOLIC Hx Diabetes Mellitus Type 1: Yes - HEMATOLOGICAL/ONCOLOGICAL Hx Blood Disorders: No - INTEGUMENTARY Hx Dermatological Problems: No - MUSCULOSKELETAL/RHEUMATOLOGICAL Hx Falls: No - GASTROINTESTINAL Hx Gastrointestinal Disorders: Yes Other/Comment: irritable bowel synd - GENITOURINARY/GYNECOLOGICAL Hx Incontinence: Yes - PSYCHIATRIC Hx Psychophysiologic Disorder: No - SURGICAL HISTORY Other/Comment: - ANESTHESIA Hx Anesthesia Reactions: No Hx Malignant Hyperthermia: No Meds Allergies/Adverse Reactions: Allergies Allergy/AdvReac Type Severity Reaction Status Date / Time No Known Allergies Allergy Verified 11/13/17 05:02 - Medications Medications: Current Medications Acetaminophen (Tylenol 325mg Tab) 650 mg PO Q4H PRN PRN Reason: Fever >100.5 F Albuterol/Ipratropium (Duoneb 3 Mg/0.5 Mg (3 Ml) Ud) 3 ml IH [id number] CHHAYA Last Admin: 11/13/17 18:20 Dose: 3 ml Fluticasone Propionate (Flonase) 1 actuation NS Q12 [facility] Last Admin: 11/13/17 21:25 Dose: Not Given Vancomycin HCl (Vancomycin 1gm) 1 gm in 250 mls @ 167 mls/hr IVPB Q12H CHHAYA PRN Reason: Protocol Last Admin: 11/13/17 21:24 Dose: 167 mls/hr Meropenem/Sodium Chloride (Meropenem 1g/Ns 100ml Ivpb) 1 gm in 100 mls @ 100 mls/hr IVPB Q8 CHHAYA PRN Reason: Protocol Stop: 11/27/17 14:01 Last Admin: 11/13/17 21:24 Dose: 100 mls/hr Sodium Chloride (Sodium Chloride 0.9%) 1,000 mls @ 50 mls/hr IV .Q20H [facility] Last Admin: 11/13/17 14:00 Dose: 50 mls/hr Metoprolol Tartrate (Lopressor) 25 mg PO BRKDIN [facility] Last Admin: 11/13/17 18:53 Dose: 25 mg Ondansetron HCl (Zofran Inj) 4 mg IVP Q6H PRN PRN Reason: Nausea/Vomiting Last Admin: 11/13/17 14:15 Dose: 4 mg Pantoprazole Sodium (Protonix Inj) 40 mg IVP DAILY [facility] Sodium Chloride ([place] Nasal [place]) 2 ml NS Q4 [facility] Physical Exam - Head Exam Head Exam: ATRAUMATIC - Eye Exam Eye Exam: EOMI. absent: Scleral icterus Pupil Exam: PERRL - ENT Exam ENT Exam: Mucous Membranes Moist - Neck Exam Neck exam: Positive for: Normal Inspection. Negative for: Lymphadenopathy, Thyromegaly - Respiratory Exam Respiratory Exam: Clear to Auscultation Bilateral, Rales. absent: Rhonchi, Respiratory Distress - Cardiovascular Exam Cardiovascular Exam: REGULAR RHYTHM, +S1, +S2. absent: JVD - GI/Abdominal Exam GI & Abdominal Exam: Soft. absent: Mass, Tenderness - Exam External exam: Swelling - Extremities Exam Extremities exam: Positive for: pedal pulses present. Negative for: calf tenderness, tenderness - Neurological Exam Neurological exam: Alert (USING DOING REALLY dR. ZARATE AND THE COLOR AND BILIOUS ASSIST WITH THIS, WE'LL TAKE WAS A FOLLOW-UP DAILY FOR 2409 WEIGHT HEMOLYTIC g REASON him) Results - Vital Signs Recent Vital Signs: Last Vital Signs Temp 99.1 F 11/13/17 18:00 Pulse 110 H 11/13/17 22:00 Resp 21 11/13/17 18:00 BP 119/81 11/13/17 18:53 Pulse Ox 96 11/13/17 10:36 - Labs Result Diagrams: 11/13/17 06:05 11/13/17 06:05 Labs: Laboratory Results - last 24 hr 11/13/17 11:30 pO2 199 H VBG pH 7.46 H VBG pCO2 32.0 L VBG HCO3 22.8 VBG Total CO2 23.8 VBG O2 Sat (Calc) 99.9 H VBG Base Excess -0.3 L VBG Potassium 5.0 Sodium 150.0 H Chloride 123.0 H Glucose 108 H Lactate 3.1 H FiO2 21.0 Venous Blood Potassium 5.0 Assessment & Plan - Assessment and Plan (Free Text) Assessment: this 52-year-old patient senior care resident with cerebral palsy admitted with the GI bleeding sepsis 1. Coffee-ground vomitus the differential diagnosis should include esophagitis peptic ulcer disease, [place] tear less likely neoplasia 2. Systemic inflammatory response syndrome, leukocytosis, urine analysis positive history of positive bacteremia in the past history of mild erythema of the upper extremity I could not appreciate now well urinalysis is positive rule out UTI 3. Tach on urine calculus her other comorbidities include dementia, hypertension urinary incontinence Plan: 1. Follow up of the hemoglobin hematocrit 2. IV Protonix 3. Follow-up the cultures 4. Continue antibiotics as per ID 5. Discussed with the patient's family brother at home length. Prefer conservative management If the patient has develops active bleeding recurrent episodes and the family is agreeable we will consider endoscopic evaluation after further optimization Thank you very much for allowing us to participate in the care of the patient - Date & Time Date: 11/13/17 Time: 15:30
[2017-11-14] MEDS: Albuterol-Ipratrop 3 mg / 0.5 (3 ml) UD IH SCH ×4 (02:57→20:58)
--- NOTE | 2017-11-14 04:07 | HP ---
CHIEF COMPLAINT: Coffee-ground vomiting. HISTORY OF PRESENT ILLNESS: Ms. Anay Velazco is 52 years old, my private patient who has advanced dementia, cerebral palsy, hypertension, diabetes mellitus, osteoporosis, history of urinary incontinence, is a resident of [facility], came to the Emergency Department for coffee-ground emesis. At this night, patient also reports right arm pain. Patient is not good historian. She cannot talk. I spoke to the patient's brother and [id number] on the bedside. Patient went for CAT scan of the abdomen and pelvis. No more episodes of vomiting in the hospital. PAST MEDICAL HISTORY: As above, cerebral palsy, advanced dementia, patient is aphasic, hypertension, diabetes mellitus, osteoporosis, urinary incontinence, dysphagia, history of COPD, irritable bowel syndrome and urinary incontinence. FAMILY HISTORY: Father and mother noncontributory. HABITS: Never smoked, no drug, no ethanol. REVIEW OF SYSTEMS: Patient was seen and examined on the bedside. Brother and [id number] was on the bedside. All questions are answered. The patient is aphasic, is not able to give review of systems, but looks like there is no fever, no more episodes of vomiting. Vitals are stable. Looks like well appearing, nontoxic, comfortable and alert. PHYSICAL EXAMINATION: VITAL SIGNS: Temperature 98.6, pulse 134, respiratory rate 17, blood pressure 101/50 , pulse oximetry 94. HEENT: Head normocephalic and atraumatic. Eyes, PERRLA. Extraocular muscles intact. Conjunctivae clear. Nose patent. Mucous membranes are moist. NECK: Supple. No carotid bruits, JVD or thyromegaly. CHEST: Bilaterally symmetrical. HEART: S1 and S2 positive. LUNGS: Clear to auscultation. ABDOMEN: Soft. Bowel sounds positive. No organomegaly. EXTREMITIES: No edema. No cyanosis. NEUROLOGIC: Patient is awake and alert, is not able to obey commands. MEDICATIONS: In the facility is MiraLax, sorbitol, Albuterol, Zyrtec, Lovenox, Lopressor, Singulair, multivitamins, omeprazole, Norvasc, Dulcolax and Zofran. LABORATORY DATA: White blood cell 17.2, hemoglobin 11.4, hematocrit 38.6, platelets 428. Sodium 150, potassium 4.1, BUN 34, creatinine 0.7, and glucose 160. ASSESSMENT AND PLAN: Ms. Anay Velazco is a 52-year-old lady with leukocytosis, anemia, hypernatremia, hyperchloremia, increased BUN, looks like dehydrated, hyperglycemia, hypophosphatemia, abnormal liver function test, proteinuria, hematuria, urinary tract infection, came for coffee-ground vomiting. CAT scan of the abdomen and pelvis done, showed chronic hip dysplasia, no acute intraabdominal findings. GI consult called. Patient has history of dementia, cerebral palsy, hypertension, osteoporosis and urinary incontinence. GI and Pulmonary consult called, GI and deep venous thrombosis prophylaxis given. Repeat labs. We will follow. Bety Nelson MD MTDZoey
[2017-11-14] MEDS: Meropenem 1g/NS 100mL IVPB 1 GM/100 ML PIGGYBACK IVPB SCH ×3 (05:14→22:02)
--- NOTE | 2017-11-14 08:12 | CON ---
DATE: 11/13/2017 PULMONARY CONSULT REFERRING PHYSICIAN: Bety Nelson MD REASON FOR CONSULT: Coffee-ground vomiting, rhinitis, mild cough. HISTORY OF PRESENT ILLNESS: This is a 52-year-old female with past medical history significant for cerebral palsy; hypertension; diabetes; osteoporosis; recurrent aspiration pneumonia, on modified diet transferred from [facility] with coffee-ground emesis. She had some cough, rhinitis, stuffy nose. No melena. No leg pain. No leg swelling reported. PAST MEDICAL HISTORY: As per history of present illness, history of chronic lung disease, diabetes, irritable bowel syndrome, urine and bowel incontinence. SOCIAL HISTORY: She is a assisted resident. No history of smoking or alcohol use. FAMILY HISTORY: No significant cardiopulmonary disease reported. ALLERGIES: NONE KNOWN. MEDICATIONS: She is on DuoNeb q. 6 hours, metoprolol tartrate 25 mg twice a day, meropenem 1 g IV q. 8 hour, Protonix 40 mg daily, IV fluid normal saline 50 mL per hour, Tylenol on p.r.n. basis, vancomycin 1 g IV q. 12 hours and Zofran on p.r.n. basis. REVIEW OF SYSTEMS: She has no headache. Has stuffy nose, rhinitis. Has coffee-ground vomiting. No chest pain. Mild abdominal discomfort. No melena. No leg pain or leg swelling. PHYSICAL EXAMINATION GENERAL: Lying in the bed, in no acute distress. VITAL SIGNS: Temperature is 99, heart rate is 110, respiratory rate is 20, blood pressure is 119/81, pulse ox 96% on room air. HEENT: Has a coffee-ground material in the mouth. NECK: Supple. No JVD. LUNGS: Have scattered rhonchi. HEART: S1 and S2. ABDOMEN: Distended, mild tenderness on palpitation. EXTREMITIES: There is no edema. NEUROLOGIC: Awake, alert, nonverbal. LABORATORY DATA: Shows hemoglobin 11.4, hematocrit 38.6, WBC 17.2, platelet is 428,000. INR 1.07, PTT 27. VBG showed pH 7.46, pCO2 32, O2 199. Sodium 150, potassium 4.1, chloride is 112, bicarbonate 26, BUN 34, creatinine 0.7, glucose 160, calcium 9.25, phosphorus 2.4, magnesium 2.1. AST 32, ALT 58, alkaline phosphatase is 75, albumin is 3.2. Urinalysis shows wbc's 5 to 10. Had abdominal pelvic ultrasound done, which showed no acute intraabdominal finding. IMPRESSION AND PLAN: Upper gastrointestinal bleeding with vomiting, rule out viral syndrome; history of cerebral palsy with developmental disability; history of hypertension; oropharyngeal dysphagia, on modified diet; has rhinitis and stuffy nose. Case discussed with the patient's brother at bedside. All the questions answered. We will start her Protonix 40 mg intravenous daily. We will get nasal swab for influenza A and B. Keep nothing by mouth. Follow up labs in the morning. Aspiration precaution. covered for sepsis, also had a staghorn calculi. Thank you and we will follow with you. Farhan Dockery MD
[2017-11-14 09:30] LABS: HEMOGLOBIN 9.6 g/dL (12.0-16.0); MEAN CELL VOLUME 83.5 fl (80.0-105.0); MEAN CORPUSCULAR HEMOGLOBIN 24.4 pg (25.0-35.0); MEAN CORPUSCULAR HGB CONC 29.3 g/dl (31.0-37.0); MEAN PLATELET VOLUME 11.1 fl (7.0-11.0); RBC 3.93 10^6/uL (3.5-6.1); RED CELL DISTRIBUTION WIDTH 17.5 % (11.5-14.5); WHITE BLOOD COUNT 9.9 10^3/ul (4.5-11.0)
[2017-11-14 09:34] LABS: IRON 42 ug/dL (45-180)
[2017-11-14 09:41] LABS: BLOOD UREA NITROGEN 7 mg/dL (7-21); CALCIUM 8.8 mg/dL (8.4-10.5); GFR AFRICAN-AMERICAN > 60; GFR NON-AFRICAN AMERICAN > 60; HDL CHOLESTEROL 36 mg/dL (29-60)
[2017-11-14 09:43] LABS: LDL CHOLESTEROL 119 mg/dL (0-129)
[2017-11-14 09:44] LABS: % IRON SATURATION 16 % (20-55); TOTAL IRON BINDING CAPACITY 267 ug/dL (265-497)
[2017-11-14] MEDS: Fluticasone Nasal 50 mcg/Spray NS SCH ×2 (09:56→21:59)
[2017-11-14] MEDS: Vancomycin 1gm in NS 250ml 1 GM/250 ML BAG IVPB SCH ×2 (09:57→20:13)
[2017-11-14 10:20] LABS: HEPATITIS B SURFACE AG Negative (NEGATIVE)
[2017-11-14 10:37] LABS: HEPATITIS C ANTIBODY NEGATIVE (NEGATIVE)
[2017-11-14 11:02] LABS: HEPATITIS B CORE AB NEGATIVE (NEGATIVE)
[2017-11-14 11:08] LABS: HEPATITIS A IGM NEGATIVE (NEGATIVE)
[2017-11-14 12:44] VITALS: RESP 20
--- NOTE | 2017-11-14 12:51 | CP.PCM.PN ---
Subjective - Date & Time of Evaluation Date of Evaluation: 11/14/17 Time of Evaluation: 11:30 - Subjective Subjective: Comfortable in bed, no fevers. Objective - Vital Signs/Intake and Output Vital Signs (last 24 hours): Temp Pulse Resp BP Pulse Ox 97.2 F L 107 H 18 115/64 92 L 11/14/17 05:41 11/14/17 05:41 11/14/17 05:41 11/14/17 05:41 11/14/17 00:01 Intake and Output: 11/14/17 11/14/17 06:59 18:59 Intake Total 900 Output Total 1200 Balance -300 - Medications Medications: Current Medications Acetaminophen (Tylenol 325mg Tab) 650 mg PO Q4H PRN PRN Reason: Fever >100.5 F Albuterol/Ipratropium (Duoneb 3 Mg/0.5 Mg (3 Ml) Ud) 3 ml IH [id number] [facility] Last Admin: 11/14/17 08:35 Dose: 3 ml Fluticasone Propionate (Flonase) 1 actuation NS Q12 [facility] Last Admin: 11/13/17 21:25 Dose: Not Given Vancomycin HCl (Vancomycin 1gm) 1 gm in 250 mls @ 167 mls/hr IVPB Q12H [facility] PRN Reason: Protocol Last Admin: 11/13/17 21:24 Dose: 167 mls/hr Meropenem/Sodium Chloride (Meropenem 1g/Ns 100ml Ivpb) 1 gm in 100 mls @ 100 mls/hr IVPB Q8 [facility] PRN Reason: Protocol Stop: 11/27/17 14:01 Last Admin: 11/14/17 05:14 Dose: 100 mls/hr Sodium Chloride (Sodium Chloride 0.9%) 1,000 mls @ 50 mls/hr IV .Q20H [facility] Last Admin: 11/13/17 14:00 Dose: 50 mls/hr Metoprolol Tartrate (Lopressor) 25 mg PO BRKDIN [facility] Last Admin: 11/13/17 18:53 Dose: 25 mg Ondansetron HCl (Zofran Inj) 4 mg IVP Q6H PRN PRN Reason: Nausea/Vomiting Last Admin: 11/13/17 14:15 Dose: 4 mg Pantoprazole Sodium (Protonix Inj) 40 mg IVP DAILY [facility] Sodium Chloride ([place] Nasal [place]) 2 ml NS Q4 [facility] Last Admin: 11/14/17 03:52 Dose: Not Given - Labs Labs: PT 12.3 SECONDS (9.4-12.5) 11/13/17 06:05 INR 1.07 (0.93-1.08) 11/13/17 06:05 APTT 26.6 Seconds (25.1-36.5) 11/13/17 06:05 - Constitutional Appears: Non-toxic - Head Exam Head Exam: NORMAL INSPECTION - ENT Exam ENT Exam: Mucous Membranes Moist - Neck Exam Neck Exam: absent: Meningismus - Respiratory Exam Respiratory Exam: Decreased Breath Sounds - Cardiovascular Exam Cardiovascular Exam: +S1, +S2 - GI/Abdominal Exam GI & Abdominal Exam: Soft. absent: Tenderness Assessment and Plan - Assessment and Plan (Free Text) Plan: Assessment severe sepsis due to right upper extremity cellulitis dementia cerebral palsy HTN DM irritable bowel syndrome Plan continue Vancomycin and Merrem day 2 and will continue to monitor clinically
[2017-11-14] MEDS: Sodium Chloride 0.9% 1,000 ML IV SCH (14:26)
--- NOTE | 2017-11-14 16:42 | CP.PCM.PN ---
<Spring Reilly - Last Filed: 11/14/17 16:39> Subjective - Date & Time of Evaluation Date of Evaluation: 11/14/17 Time of Evaluation: 10:40 - Subjective Subjective: Chief complaint: Upper GI bleed 52 yr female resident of [facility] w/ history of Cerebral palsy, Dementia, HTN, diabetes, osteoporosis, urinary incontinence, COPD, & IBS. While in [facility] facility, coffee ground emesis noted. Pt is a poor historian due to mental disability. No distress noted. Objective - Vital Signs/Intake and Output Vital Signs (last 24 hours): Temp Pulse Resp BP Pulse Ox 98.6 F 109 H 20 147/79 92 L 11/14/17 12:00 11/14/17 14:00 11/14/17 12:00 11/14/17 12:00 11/14/17 00:01 Intake and Output: 11/14/17 11/14/17 06:59 18:59 Intake Total 900 Output Total 1200 Balance -300 - Medications Medications: Current Medications Acetaminophen (Tylenol 325mg Tab) 650 mg PO Q4H PRN PRN Reason: Fever >100.5 F Albuterol/Ipratropium (Duoneb 3 Mg/0.5 Mg (3 Ml) Ud) 3 ml IH [id number] [facility] Last Admin: 11/14/17 13:18 Dose: 3 ml Fluticasone Propionate (Flonase) 1 actuation NS Q12 [facility] Last Admin: 11/14/17 09:56 Dose: 1 spr Vancomycin HCl (Vancomycin 1gm) 1 gm in 250 mls @ 167 mls/hr IVPB Q12H [facility] PRN Reason: Protocol Last Admin: 11/14/17 09:57 Dose: 167 mls/hr Meropenem/Sodium Chloride (Meropenem 1g/Ns 100ml Ivpb) 1 gm in 100 mls @ 100 mls/hr IVPB Q8 [facility] PRN Reason: Protocol Stop: 11/27/17 14:01 Last Admin: 11/14/17 14:26 Dose: 100 mls/hr Sodium Chloride (Sodium Chloride 0.9%) 1,000 mls @ 50 mls/hr IV .Q20H [facility] Last Admin: 11/14/17 14:26 Dose: 50 mls/hr Metoprolol Tartrate (Lopressor) 25 mg PO BRKDIN [facility] Last Admin: 11/14/17 09:54 Dose: 25 mg Ondansetron HCl (Zofran Inj) 4 mg IVP Q6H PRN PRN Reason: Nausea/Vomiting Last Admin: 11/13/17 14:15 Dose: 4 mg Pantoprazole Sodium (Protonix Inj) 40 mg IVP DAILY [facility] Last Admin: 11/14/17 09:53 Dose: 40 mg Sodium Chloride ([place] Nasal [place]) 2 ml NS Q4 [facility] Last Admin: 11/14/17 14:27 Dose: 1 spr - Labs Labs: 11/14/17 08:50 11/14/17 08:50 PT 12.3 SECONDS (9.4-12.5) 11/13/17 06:05 INR 1.07 (0.93-1.08) 11/13/17 06:05 APTT 26.6 Seconds (25.1-36.5) 11/13/17 06:05 - Constitutional Appears: Younger Than Stated Age, Chronically Ill - Head Exam Head Exam: ATRAUMATIC, NORMAL INSPECTION, NORMOCEPHALIC - Eye Exam Eye Exam: EOMI, Normal appearance, PERRL Pupil Exam: NORMAL ACCOMODATION, PERRL - ENT Exam ENT Exam: Mucous Membranes Moist - Neck Exam Neck Exam: Normal Inspection - Respiratory Exam Respiratory Exam: Decreased Breath Sounds, Wheezes - Cardiovascular Exam Cardiovascular Exam: +S1, +S2 - GI/Abdominal Exam GI & Abdominal Exam: Soft, Normal Bowel Sounds - Exam Additional comments: f/c draining clear yellow urine. - Extremities Exam Additional comments: contracted upper/lower extremities. - Neurological Exam Neurological Exam: Alert, Awake - Psychiatric Exam Psychiatric exam: Flat Affect, Normal Mood - Skin Skin Exam: Dry, Intact, Pallor, Warm Assessment and Plan (1) GI bleed Status: Acute (2) Anemia, iron deficiency Status: Acute (3) Hypernatremia Status: Acute (4) Hyperchloremia Status: Acute (5) Dehydration Status: Acute (6) Hypophosphatemia Status: Acute (7) Hypertriglyceridemia Status: Acute (8) Proteinuria Status: Acute (9) Hematuria Status: Acute (10) Cellulitis of right arm Status: Acute (11) Staghorn calculus Status: Chronic (12) Cerebral palsy Status: Chronic (13) Sepsis Status: Acute (14) UTI (urinary tract infection) Status: Acute - Assessment and Plan (Free Text) Plan: IV meropenem & vanco. Blood cultures NEG, Urine cultures pending. Labs ordered. Conservative managament per GI, possible endoscopy per family. GI/VTE prophylaxis. PT onboard. Consult: GI - Dr. Michael RUELAS - Dr. Triston Cervantes - Dr. Dockery Reviewed: CXR = WNL CT abd/pelvis = staghorn calculus R renal pelvis, severe scoliosis covex to L, chronic hip dysplasias ECG = ABNORMAL, ST, RSR, R ventricular conduction delay, possible infarct <Bety Nelson - Last Filed: 11/14/17 18:52> Objective - Vital Signs/Intake and Output Vital Signs (last 24 hours): Temp Pulse Resp BP Pulse Ox 98.6 F 105 H 20 147/79 92 L 11/14/17 12:00 11/14/17 18:00 11/14/17 12:00 11/14/17 12:00 11/14/17 00:01 Intake and Output: 11/14/17 11/14/17 06:59 18:59 Intake Total 900 0 Output Total 1200 1300 Balance -300 -1300 - Medications Medications: Current Medications Acetaminophen (Tylenol 325mg Tab) 650 mg PO Q4H PRN PRN Reason: Fever >100.5 F Albuterol/Ipratropium (Duoneb 3 Mg/0.5 Mg (3 Ml) Ud) 3 ml IH [id number] [facility] Last Admin: 11/14/17 13:18 Dose: 3 ml Fluticasone Propionate (Flonase) 1 actuation NS Q12 [facility] Last Admin: 11/14/17 09:56 Dose: 1 spr Vancomycin HCl (Vancomycin 1gm) 1 gm in 250 mls @ 167 mls/hr IVPB Q12H [facility] PRN Reason: Protocol Last Admin: 11/14/17 09:57 Dose: 167 mls/hr Meropenem/Sodium Chloride (Meropenem 1g/Ns 100ml Ivpb) 1 gm in 100 mls @ 100 mls/hr IVPB Q8 [facility] PRN Reason: Protocol Stop: 11/27/17 14:01 Last Admin: 11/14/17 14:26 Dose: 100 mls/hr Sodium Chloride (Sodium Chloride 0.9%) 1,000 mls @ 50 mls/hr IV .Q20H [facility] Last Admin: 11/14/17 14:26 Dose: 50 mls/hr Metoprolol Tartrate (Lopressor) 25 mg PO BRKDIN [facility] Last Admin: 11/14/17 17:05 Dose: 25 mg Ondansetron HCl (Zofran Inj) 4 mg IVP Q6H PRN PRN Reason: Nausea/Vomiting Last Admin: 11/13/17 14:15 Dose: 4 mg Pantoprazole Sodium (Protonix Inj) 40 mg IVP DAILY [facility] Last Admin: 11/14/17 09:53 Dose: 40 mg Sodium Chloride ([place] Nasal [place]) 2 ml NS Q4 [facility] Last Admin: 11/14/17 17:05 Dose: 1 spr - Labs Labs: 11/14/17 08:50 11/14/17 08:50 PT 12.3 SECONDS (9.4-12.5) 11/13/17 06:05 INR 1.07 (0.93-1.08) 11/13/17 06:05 APTT 26.6 Seconds (25.1-36.5) 11/13/17 06:05 Assessment and Plan - Assessment and Plan (Free Text) Plan: 52 yr female resident of [facility] w/ history of Cerebral palsy, Dementia, HTN, diabetes, osteoporosis, urinary incontinence, COPD, & IBS. While in [facility] facility, coffee ground emesis noted. Pt is a poor historian due to mental disability. No distress noted. pt is seen and examined at bed side , looking comfortable . no n.v.d , will f/u . agreed all above . will f/u
[2017-11-14 18:16] LABS: FOLATE 6.7 ng/mL
--- NOTE | 2017-11-14 23:59 | PN ---
DATE: 11/14/2017 REFERRING PHYSICIAN: Bety Nelson MD SUBJECTIVE: She is lying in the bed, head at 45 degrees. Night was unremarkable. Seen by GI. Cleared for p.o. clear liquid diet. No vomiting since yesterday. Still has coffee ground material in the mouth. No nausea, no leg swelling, no diarrhea. OBJECTIVE: GENERAL: In no acute distress. VITAL SIGNS: Temperature is 98, heart rate is 105, respiratory rate is 20, blood pressure is 147/79, pulse ox 97% on nasal cannula. HEENT: Moist mucous membrane. Small oral cavity. Has some coffee ground material in the mouth. LUNGS: Has a fair airflow with rhonchi. HEART: S1, S2. ABDOMEN: Positive bowel sounds, mildly distended. EXTREMITIES: There is no edema. NEUROLOGIC: Awake, alert, nonverbal, does not follow command. MEDICATIONS: She is on DuoNeb q. 6 hours, Flonase one spray each nostril twice a day, metoprolol tartrate 25 mg daily, meropenem 1 g IV q. 8 hours, nasal saline 2 sprays to each nostril q. 4 hours, Protonix 40 mg daily, IV fluid normal saline 50 mL per hour, Tylenol p.r.n., vancomycin 1 g IV q. 12 hours and Zofran on p.r.n. basis. LABORATORY DATA: Shows hemoglobin 9.6, hematocrit 32.8, WBC 9.9, platelet count is 336. Sodium 157, potassium 3.9, chloride 124, BUN 7, creatinine 0.6, bicarbonate 21, glucose is 98, calcium is 8.8, iron is 42, TIBC is 267, triglyceride is 202, cholesterol is 189, TSH 2.55. Urine culture has Gram negative mikaela. Blood cultures, one of them is negative. IMPRESSION AND PLAN: Gastrointestinal bleed, cerebral palsy, developmental disability, hypertension, oropharyngeal dysphagia - on modified diet, rhinosinusitis. Case discussed with the nursing staff. Patient seen by GI, cleared for clear liquid diet. Family want to be conservative, do not want to be aggressive about further testing for GI bleed. Gastric prophylaxis and SCDs to lower extremities. Follow up labs in the morning. Thank you and we will follow with you. Farhan Dockery MD [facility] # [id number]
[2017-11-15] MEDS: Albuterol-Ipratrop 3 mg / 0.5 (3 ml) UD IH SCH ×3 (01:41→13:12)
--- NOTE | 2017-11-15 01:48 | PN ---
DATE: 11/14/2017 SUBJECTIVE: This patient was seen and evaluated earlier today. No further episodes of vomiting noticed. PHYSICAL EXAMINATION: VITAL SIGNS: Temperature is 98.9, pulse 93, blood pressure is 122/78, O2 saturation 90%. HEENT: Atraumatic, anicteric. NECK: Supple. HEART: S1 and S2 heard. LUNGS: Bilateral air entry present. ABDOMEN: Soft. No tenderness. EXTREMITIES: No cyanosis. No clubbing. LABORATORY DATA: WBC count 9.9, come down; hemoglobin 9.6, hematocrit 32.8, platelets 336. Sodium has gone up to 157, chloride 124, iron 42. IMPRESSION AND PLAN: This 52-year-old patient, halfway resident, was admitted with coffee-ground vomitus. Patient also has leukocytosis. Urinalysis is positive. Patient has been on IV antibiotics and urine culture suggestive of gram-negative rods. Patient has renal calculus, clinically is more suggestive of urosepsis with urinary tract infection; urosepsis and history of upper GI bleeding and hematemesis. No further episodes of vomiting noticed since admission. There is some drop in blood count noticed. It may be related to the dehydration. No melena noticed. Would recommend, continue the IV antibiotics as per ID. Patient has hypernatremia, sodium has increased to 157. Recommend to change the IV fluids and close followup of the hemoglobin and hematocrit. If there is further acute drop in blood count with GI bleeding, then we will discuss with the family about endoscopic evaluation and initial response. Discussed with the family yesterday was to follow a conservative course, avoiding procedures unless it is needed. Thank you very much for allowing us to participate in the care of your patient. Kiya Rodriguez MD
[2017-11-15] MEDS: Meropenem 1g/NS 100mL IVPB 1 GM/100 ML PIGGYBACK IVPB SCH (05:25)
[2017-11-15 08:25] LABS: HEMOGLOBIN 10.1 g/dL (12.0-16.0); MEAN CELL VOLUME 83.5 fl (80.0-105.0); MEAN CORPUSCULAR HEMOGLOBIN 24.5 pg (25.0-35.0); MEAN CORPUSCULAR HGB CONC 29.4 g/dl (31.0-37.0); RBC 4.12 10^6/uL (3.5-6.1); RED CELL DISTRIBUTION WIDTH 17.8 % (11.5-14.5); WHITE BLOOD COUNT 11.1 10^3/ul (4.5-11.0)
[2017-11-15] MEDS: Insulin Lispro (humaLOG) LOW Coverage SC SCH ×3 (08:30→18:06)
[2017-11-15] MEDS: Vancomycin 1gm in NS 250ml 1 GM/250 ML BAG IVPB SCH (09:05)
[2017-11-15 09:14] LABS: ALBUMIN 3.4 g/dL (3.0-4.8); ALT/SGPT 59 U/L (7-56); AST/SGOT 38 U/L (14-36); BLOOD UREA NITROGEN 3 mg/dL (7-21); CALCIUM 9.1 mg/dL (8.4-10.5); GFR AFRICAN-AMERICAN > 60; GFR NON-AFRICAN AMERICAN > 60
[2017-11-15] MEDS: Fluticasone Nasal 50 mcg/Spray NS SCH (11:00)
--- NOTE | 2017-11-15 12:06 | CP.PCM.PN ---
<Anay John - Last Filed: 11/15/17 12:04> Subjective - Date & Time of Evaluation Date of Evaluation: 11/15/17 Time of Evaluation: 10:40 - Subjective Subjective: Seen and examined with etc. to take, chart reviewed. Patient reported to have poor appetite, reported to have bowel movements last night no reports of melena or bright red blood per rectum. Patient is awake and alert but a poor historian. Acute overnight events reported. Objective - Vital Signs/Intake and Output Vital Signs (last 24 hours): Temp Pulse Resp BP Pulse Ox 98.4 F 117 H 20 148/90 94 L 11/15/17 06:00 11/15/17 08:30 11/15/17 06:00 11/15/17 08:30 11/15/17 06:00 Intake and Output: 11/15/17 11/15/17 06:59 18:59 Intake Total 1250 Output Total 1375 Balance -125 - Medications Medications: Current Medications Acetaminophen (Tylenol 325mg Tab) 650 mg PO Q4H PRN PRN Reason: Fever >100.5 F Albuterol/Ipratropium (Duoneb 3 Mg/0.5 Mg (3 Ml) Ud) 3 ml IH [id number] [facility] Last Admin: 11/15/17 08:18 Dose: 3 ml Cephalexin Monohydrate (Keflex) 500 mg PO Q8 [facility] PRN Reason: Protocol Stop: 11/21/17 05:00 Doxycycline Hyclate (Doryx) 100 mg PO Q12 [facility] PRN Reason: Protocol Stop: 11/21/17 05:00 Fluticasone Propionate (Flonase) 1 actuation NS Q12 [facility] Last Admin: 11/15/17 11:00 Dose: 1 spr Dextrose (Dextrose 5% In Water 1000 Ml) 1,000 mls @ 80 mls/hr IV .[id number] [facility] Last Admin: 11/14/17 23:08 Dose: 80 mls/hr Insulin Human Lispro (Humalog Low) 0 units SC ACHS [facility] PRN Reason: Protocol Last Admin: 11/15/17 11:38 Dose: Not Given Metoprolol Tartrate (Lopressor) 25 mg PO BRKDIN [facility] Last Admin: 11/15/17 08:30 Dose: 25 mg Ondansetron HCl (Zofran Inj) 4 mg IVP Q6H PRN PRN Reason: Nausea/Vomiting Last Admin: 11/13/17 14:15 Dose: 4 mg Pantoprazole Sodium (Protonix Inj) 40 mg IVP DAILY [facility] Last Admin: 11/15/17 11:00 Dose: 40 mg Sodium Chloride ([place] Nasal [place]) 2 ml NS Q4 [facility] Last Admin: 11/15/17 08:30 Dose: 1 spr - Labs Labs: 11/15/17 08:00 11/15/17 09:00 PT 12.3 SECONDS (9.4-12.5) 11/13/17 06:05 INR 1.07 (0.93-1.08) 11/13/17 06:05 APTT 26.6 Seconds (25.1-36.5) 11/13/17 06:05 - Constitutional Appears: No Acute Distress - Eye Exam Eye Exam: Normal appearance. absent: Scleral icterus - ENT Exam ENT Exam: Mucous Membranes Moist - Neck Exam Neck Exam: Normal Inspection - Respiratory Exam Respiratory Exam: NORMAL BREATHING PATTERN. absent: Respiratory Distress - Cardiovascular Exam Cardiovascular Exam: +S1, +S2 - GI/Abdominal Exam GI & Abdominal Exam: Soft, Normal Bowel Sounds. absent: Guarding, Rebound - Extremities Exam Extremities Exam: absent: Pedal Edema - Neurological Exam Neurological Exam: Alert, Awake - Skin Skin Exam: Dry, Warm Assessment and Plan - Assessment and Plan (Free Text) Assessment: Assessment: Upper GI bleed, status post hematemesis, hemoglobin study no further episodes Urinary tract infection Cerebral palsy History of IBS COPD Diabetes mellitus Dementia Plan: Continue clear liquids, nectar thick Monitor H&H and for overt GI bleed Continue PPI On oral antibiotics Family preferred conservative treatment. Reconsider if continued decrease Hgb or active bleed, no episodes of overt GIB, h/h steady. Seen and discussed with Dr. Jacinto. <Kiya Rodriguez V - Last Filed: 11/15/17 20:18> Objective - Vital Signs/Intake and Output Vital Signs (last 24 hours): Temp Pulse Resp BP Pulse Ox 98.5 F 55 L 20 132/83 95 11/15/17 12:00 11/15/17 18:18 11/15/17 12:00 11/15/17 18:18 11/15/17 12:00 Intake and Output: 11/15/17 11/16/17 18:59 06:59 Intake Total 300 Output Total 900 Balance -600 - Labs Labs: 11/15/17 08:00 11/15/17 09:00 PT 12.3 SECONDS (9.4-12.5) 11/13/17 06:05 INR 1.07 (0.93-1.08) 11/13/17 06:05 APTT 26.6 Seconds (25.1-36.5) 11/13/17 06:05 Attending/Attestation - Attestation I have personally seen and examined this patient.: Yes I have fully participated in the care of the patient.: Yes I have reviewed all pertinent clinical information, including history, physical exam and plan: Yes Notes (Text): This is an addendum to GI progress report dictated by Anay John APN.The patient was seen and examined earlier. Medical records, lab studies, imagings were reviewed. Last 24 hours events reviewed. Agreed with the above treatment plan as outlined in Anay John APN's notes the with the addition of the following No further episodes of vomiting Hemoglobin stable Plan to be discharged today on examination abdomen soft no tenderness Recommended to follow up hemoglobin in the senior care Continue antibiotics as per ID 11/15/17 20:17
[2017-11-15 12:20] VITALS: TEMP 98.5; O2SAT 95
--- NOTE | 2017-11-15 12:34 | CP.PCM.PN ---
Subjective - Date & Time of Evaluation Date of Evaluation: 11/15/17 Time of Evaluation: 11:05 - Subjective Subjective: Comfortable in bed, afebrile, not in distress. Objective - Vital Signs/Intake and Output Vital Signs (last 24 hours): Temp Pulse Resp BP Pulse Ox 98.4 F 117 H 20 148/90 94 L 11/15/17 06:00 11/15/17 08:30 11/15/17 06:00 11/15/17 08:30 11/15/17 06:00 Intake and Output: 11/15/17 11/15/17 06:59 18:59 Intake Total 1250 Output Total 1375 Balance -125 - Medications Medications: Current Medications Acetaminophen (Tylenol 325mg Tab) 650 mg PO Q4H PRN PRN Reason: Fever >100.5 F Albuterol/Ipratropium (Duoneb 3 Mg/0.5 Mg (3 Ml) Ud) 3 ml IH [id number] COUNTS INCLUDE 234 BEDS AT THE [facility] Last Admin: 11/15/17 08:18 Dose: 3 ml Fluticasone Propionate (Flonase) 1 actuation NS Q12 CHHAYA Last Admin: 11/14/17 21:59 Dose: 1 spr Vancomycin HCl (Vancomycin 1gm) 1 gm in 250 mls @ 167 mls/hr IVPB Q12H CHHAYA PRN Reason: Protocol Last Admin: 11/15/17 09:05 Dose: 167 mls/hr Meropenem/Sodium Chloride (Meropenem 1g/Ns 100ml Ivpb) 1 gm in 100 mls @ 100 mls/hr IVPB Q8 [facility]AYA PRN Reason: Protocol Stop: 11/27/17 14:01 Last Admin: 11/15/17 05:25 Dose: 100 mls/hr Dextrose (Dextrose 5% In Water 1000 Ml) 1,000 mls @ 80 mls/hr IV .[id number] COUNTS INCLUDE 234 BEDS AT THE [facility] Last Admin: 11/14/17 23:08 Dose: 80 mls/hr Insulin Human Lispro (Humalog Low) 0 units SC ACHS CHHAYA PRN Reason: Protocol Last Admin: 11/15/17 08:30 Dose: Not Given Metoprolol Tartrate (Lopressor) 25 mg PO BRKDIN COUNTS INCLUDE 234 BEDS AT THE [facility] Last Admin: 11/15/17 08:30 Dose: 25 mg Ondansetron HCl (Zofran Inj) 4 mg IVP Q6H PRN PRN Reason: Nausea/Vomiting Last Admin: 11/13/17 14:15 Dose: 4 mg Pantoprazole Sodium (Protonix Inj) 40 mg IVP DAILY COUNTS INCLUDE 234 BEDS AT THE [facility] Last Admin: 11/14/17 09:53 Dose: 40 mg Sodium Chloride (Lorain Nasal [place]) 2 ml NS Q4 COUNTS INCLUDE 234 BEDS AT THE [facility] Last Admin: 11/15/17 08:30 Dose: 1 spr - Labs Labs: 11/15/17 08:00 11/15/17 09:00 PT 12.3 SECONDS (9.4-12.5) 11/13/17 06:05 INR 1.07 (0.93-1.08) 11/13/17 06:05 APTT 26.6 Seconds (25.1-36.5) 11/13/17 06:05 - Constitutional Appears: Non-toxic - Head Exam Head Exam: NORMAL INSPECTION - Neck Exam Neck Exam: absent: Meningismus - Respiratory Exam Respiratory Exam: Decreased Breath Sounds - Cardiovascular Exam Cardiovascular Exam: +S1, +S2 - GI/Abdominal Exam GI & Abdominal Exam: Soft. absent: Tenderness - Extremities Exam Additional comments: improved right arm swelling Assessment and Plan - Assessment and Plan (Free Text) Plan: Assessment severe sepsis due to right upper extremity cellulitis, clinically improving Proteus in the urine dementia cerebral palsy HTN DM irritable bowel syndrome Plan on Vancomycin and Merrem day 3 - when ready for discharge, the patient can be switched to PO Keflex and Doxycycline to complete 7-10 days of therapy
[2017-11-15 18:19] VITALS: BP 132/83; PULSE 55
== END 2017-11-15 18:51 | DRG 872 ==
LOC: ED 04:47 → ERH 07:11 → 3RSO 10:28
PROVIDERS: ADMIT Internal Medicine; ATTEND Internal Medicine
DX: A41.9 Sepsis, unspecified organism (principal); K92.0 Hematemesis; L03.113 Cellulitis of right upper limb; N39.0 Urinary tract infection, site not specified; E87.0 Hyperosmolality and hypernatremia; D62 Acute posthemorrhagic anemia; R47.01 Aphasia; E83.39 Other disorders of phosphorus metabolism; E10.65 Type 1 diabetes mellitus with hyperglycemia; R13.10 Dysphagia, unspecified; R13.12 Dysphagia, oropharyngeal phase; F03.90 Unspecified dementia, unspecified severity, without behavioral disturbance, psychotic disturbance, mood disturbance, and anxiety; G80.9 Cerebral palsy, unspecified; K58.9 Irritable bowel syndrome, unspecified; J44.9 Chronic obstructive pulmonary disease, unspecified; B96.4 Proteus (mirabilis) (morganii) as the cause of diseases classified elsewhere; E86.0 Dehydration; E78.1 Pure hyperglyceridemia; N20.0 Calculus of kidney; M81.0 Age-related osteoporosis without current pathological fracture; I10 Essential (primary) hypertension; R32 Unspecified urinary incontinence; R65.20 Severe sepsis without septic shock; J32.9 Chronic sinusitis, unspecified; Q65.89 Other specified congenital deformities of hip